=== PATIENT | female | born 1960 | race African-American/Black ===

== ENCOUNTER 2021-04-28 05:29 | Inpatient (IN) | payer OTHER ==
[2021-04-28] MEDS ORDERED: hydrALAZINE 25 MG TAB ONE (05:57)
[2021-04-28] MEDS ORDERED: Amlodipine 5 MG TAB ONE (05:57)
[2021-04-28] MEDS ORDERED: Carvedilol 6.25 MG TAB PO SCH (06:15)
[2021-04-28 06:20] LABS: #Lymphocytes 0.5 thou/uL (1.20-3.40); #Monocytes 0.3 thou/uL (0.11-0.59); #Neutrophils 7.1 thou/uL (1.40-6.50); %Basophils 0.4 % (0.0-1.0); %Eosinophils 0.2 % (0.0-10.0); %Lymphocytes 6.5 % (21.0-51.0); %Monocytes 3.2 % (0.0-10.0); %Neutrophils 89.8 % (42.0-75.0); Mean Corpuscular HGB CONC 32.3 g/dL (32.0-36.0); Mean Corpuscular Hemoglobin 30.6 pg (27.0-31.0); Mean Corpuscular Volume 94.9 fL (78.0-98.0); Mean Platelet Volume 7.9 fL (7.4-10.4); Platelet Count 197 thou/uL (130-400); RBC Distribution Width 15.4 % (11.5-14.5); Red Blood Cell (RBC) Count 2.29 mill/uL (4.20-5.40); White Blood Cell (WBC) Count 7.9 thou/uL (4.8-10.8)
[2021-04-28 06:39] LABS: ALT (SGPT) 349 U/L (8-55); AST (SGOT) 688 U/L (5-34); Albumin 3.9 g/dL (3.5-5.0); Alkaline Phosphatase 100 U/L (40-110); Anion Gap 29 mmol/L (10-20); BUN (Urea Nitrogen) 112 mg/dL (9.8-20.1); Bilirubin, Total 1.3 mg/dL (0.2-1.2); Calc. Creatinine Clearance 0 mL/min (70-130); Calcium 9.8 mg/dL (7.8-10.44); Carbon Dioxide 11 mmol/L (22-29); Chloride 105 mmol/L (98-107); Globulin 2.4 g/dL (2.4-3.5); Glucose 100 mg/dL (70-105); Potassium 5.7 mmol/L (3.5-5.1); Protein, Total 6.3 g/dL (6.0-8.3); Sodium 139 mmol/L (136-145)
[2021-04-28 07:20] LABS: Acetaminophen Less than 6.0 mcg/mL (10.0-30.0); Alcohol Less than 10 mg/dL (Less than 10); Salicylate Less than 8.0 mg/dL (15.0-30.0)
[2021-04-28 07:49] LABS: INR-International Normal Ratio 1.3; Prothrombin Time 15.8 sec (12.0-14.7)
[2021-04-28 07:50] LABS: PTT 32.4 sec (22.9-36.1)
[2021-04-28] MEDS ORDERED: hydrALAZINE 20 MG/ML VIAL ONE (08:18)
[2021-04-28] MEDS ORDERED: Nitroglycerin 0.4 MG TAB (25 Tab Bottle) SL PRN (09:57)
[2021-04-28] MEDS ORDERED: Nitroglycerin 2% Ointment 1 INCH/1 GM Packet TOP SCH ×3 (10:00→14:00)
[2021-04-28] MEDS ORDERED: Senokot S 8.6-50 MG TAB PO PRN (11:03)
[2021-04-28] MEDS ORDERED: Calcium Carbonate 500 MG ChewTAB PO PRN (11:03)
[2021-04-28] MEDS ORDERED: Acetaminophen 325 MG TAB PO PRN (11:03)
[2021-04-28] MEDS ORDERED: Ondansetron ODT 4 MG TAB PO PRN (11:03)
[2021-04-28] MEDS ORDERED: Ondansetron PF 4 MG/2 ML Vial IVP PRN (11:03)
[2021-04-28] MEDS ORDERED: Nitroglycerin 2% Ointment 1 INCH/1 GM Packet ONE (11:27)
[2021-04-28] MEDS ORDERED: Sodium Bicarb 50 MEQ/50 ML Abboject 8.4% SYRINGE ONE (11:27)
[2021-04-28] MEDS ORDERED: Dextrose 50% Abboject 50 ML SYRINGE ONE (11:27)
[2021-04-28] MEDS ORDERED: Labetalol HCl 100 MG/20 ML VIAL SLOW IVP PRN ×2 (11:27→11:28)
[2021-04-28] MEDS ORDERED: Insulin Regular 300 UNITS/3 ML VIAL ONE (11:27)
[2021-04-28] MEDS ORDERED: Dextrose 50% Abboject 50 ML SYRINGE SLOW IVP SCH (11:30)
[2021-04-28] MEDS ORDERED: Sodium Bicarb 50 MEQ/50 ML Abboject 8.4% SYRINGE IVP SCH (11:30)
[2021-04-28] MEDS ORDERED: Insulin Regular 300 UNITS/3 ML VIAL IVP SCH (11:30)
[2021-04-28 12:05] LABS: Potassium 5.9 mmol/L (3.5-5.1)
[2021-04-28 12:17] LABS: Troponin I 0.152 ng/mL (< 0.028)
[2021-04-28 13:31] LABS: HBSAg Index 0.22 S/CO (0-0.99); Hep B Surf Ag Non-Reactive S/CO (NonReactive)
[2021-04-28 14:51] LABS: Troponin I 0.185 ng/mL (< 0.028)
[2021-04-28] MEDS ORDERED: Tuberculin PPD 0.1 ML VIAL I-DERMAL SCH (15:00)
[2021-04-28 15:37] LABS: Hemoglobin 7.4 g/dL (12.0-16.0); Mean Corpuscular HGB CONC 33.8 g/dL (32.0-36.0); Mean Corpuscular Hemoglobin 31.3 pg (27.0-31.0); Mean Corpuscular Volume 92.5 fL (78.0-98.0); Platelet Count 193 thou/uL (130-400); RBC Distribution Width 15.5 % (11.5-14.5); Red Blood Cell (RBC) Count 2.38 mill/uL (4.20-5.40); White Blood Cell (WBC) Count 6.6 thou/uL (4.8-10.8)
[2021-04-28 15:52] LABS: Anisocytosis SLIGHT = 6-15 cells (100X) (0-5/hpf); Band 2 % (5-11); Eosinophils 1 % (0-10); Lymphocytes 6 % (21-51); MDiff Complete? YES; Monocytes 6 % (0-10); Neutrophil 84 % (42-75); Nucleated RBC 1 % (0); Ovalocytes SLIGHT = 2-5 cells (100X) (0-1/hpf); Platelet Morphology Comment Appears Adequate; Polychromasia SLIGHT = 2-3 cells (100X) (0-2/hpf); Schistocytes SLIGHT = 2-5 cells (100X) (0-1/hpf)
[2021-04-28 15:55] LABS: Anion Gap 16 mmol/L (10-20); BUN (Urea Nitrogen) 33 mg/dL (9.8-20.1); Calc. Creatinine Clearance 0 mL/min (70-130); Calcium 9.7 mg/dL (7.8-10.44); Carbon Dioxide 34 mmol/L (22-29); Chloride 95 mmol/L (98-107); Glucose 62 mg/dL (70-105); Phosphorus 2.9 mg/dL (2.3-4.7); Sodium 142 mmol/L (136-145)
[2021-04-28 16:11] LABS: HBSAg Index 0.34 S/CO (0-0.99); Hep B Core Total Ab Non-Reactive (NonReactive); Hep B Core Total Index 0.09 S/CO (0-0.79); Hep B Surf Ag Non-Reactive S/CO (NonReactive); Hep C IgG Ab Non-Reactive (NonReactive); Hep C Index 0.06 S/CO (0-0.79)
[2021-04-28 16:13] LABS: HBSAB Concentration 25.85 mIU/mL; Hep B Surf AB Reactive (NonReactive)
[2021-04-28] MEDS: Sevelamer Carbonate 800 MG TAB PO SCH ×2 (18:38→19:59)
[2021-04-28] MEDS: hydrALAZINE 25 MG TAB PO SCH ×2 (18:42→21:48)
[2021-04-28] MEDS ORDERED: Famotidine 20 MG TAB PO SCH (21:00)
[2021-04-28] MEDS ORDERED: hydrALAZINE 25 MG TAB PO SCH (21:30)
[2021-04-28] MEDS ORDERED: diphenhydrAMINE 25 MG CAP PO SCH ×2 (22:00→23:30)
[2021-04-28] MEDS: Carvedilol 6.25 MG TAB PO SCH (22:11)
[2021-04-28 22:24] VITALS: BMI 20.3
[2021-04-29] MEDS: hydrALAZINE 20 MG/ML VIAL SLOW IVP PRN (01:16)
[2021-04-29] MEDS ORDERED: traZODone HCl 50 MG TAB PO SCH (02:00)
[2021-04-29 05:18] LABS: #Lymphocytes 0.8 thou/uL (1.20-3.40); #Monocytes 0.6 thou/uL (0.11-0.59); #Neutrophils 4.4 thou/uL (1.40-6.50); %Eosinophils 0.8 % (0.0-10.0); %Lymphocytes 13.7 % (21.0-51.0); %Monocytes 9.8 % (0.0-10.0); %Neutrophils 75.7 % (42.0-75.0); Hemoglobin 6.9 g/dL (12.0-16.0); Mean Corpuscular HGB CONC 31.8 g/dL (32.0-36.0); Mean Corpuscular Hemoglobin 30.5 pg (27.0-31.0); Mean Corpuscular Volume 95.9 fL (78.0-98.0); Mean Platelet Volume 7.7 fL (7.4-10.4); Platelet Count 185 thou/uL (130-400); RBC Distribution Width 15.1 % (11.5-14.5); Red Blood Cell (RBC) Count 2.26 mill/uL (4.20-5.40); White Blood Cell (WBC) Count 5.8 thou/uL (4.8-10.8)
[2021-04-29 05:36] LABS: ALT (SGPT) 294 U/L (8-55); AST (SGOT) 229 U/L (5-34); Albumin 3.6 g/dL (3.5-5.0); Alkaline Phosphatase 82 U/L (40-110); Anion Gap 17 mmol/L (10-20); BUN (Urea Nitrogen) 36 mg/dL (9.8-20.1); Bilirubin, Total 0.9 mg/dL (0.2-1.2); Calc. Creatinine Clearance 5 mL/min (70-130); Calcium 9.3 mg/dL (7.8-10.44); Carbon Dioxide 29 mmol/L (22-29); Chloride 95 mmol/L (98-107); Globulin 2.3 g/dL (2.4-3.5); Glucose 79 mg/dL (70-105); Potassium 3.6 mmol/L (3.5-5.1); Protein, Total 5.9 g/dL (6.0-8.3); Sodium 137 mmol/L (136-145)
[2021-04-29] MEDS ORDERED: Carvedilol 6.25 MG TAB PO SCH (09:15)
[2021-04-29] MEDS: Aspirin Chewable 81 MG TAB PO SCH (09:37)
[2021-04-29] MEDS: Sevelamer Carbonate 800 MG TAB PO SCH ×3 (09:37→18:15)
[2021-04-29] MEDS: hydrALAZINE 25 MG TAB PO SCH ×3 (09:38→19:55)
[2021-04-29] MEDS: Amlodipine 10 MG TAB PO SCH (09:38)
[2021-04-29] MEDS: Carvedilol 6.25 MG TAB PO SCH ×2 (09:41→18:15)
[2021-04-29] MEDS ORDERED: Minoxidil 2.5 MG TAB PO SCH (12:15)
[2021-04-29 12:18] LABS: SARS-CoV-2 PCR by NAA Not Detected (NotDetected)
[2021-04-29] MEDS: Gabapentin 300 MG CAP PO SCH ×2 (15:57→19:55)
[2021-04-29] MEDS: Mirtazapine 15 MG TAB PO SCH (19:55)
[2021-04-29] MEDS: Calcitriol 0.25 MCG CAP PO SCH (19:56)
[2021-04-29] MEDS: Melatonin 3 MG TAB PO SCH (19:56)
[2021-04-29] MEDS ORDERED: Famotidine 20 MG TAB PO SCH (21:00)
[2021-04-30 04:58] LABS: #Eosinphils 0.1 thou/uL (0.0-0.7); #Lymphocytes 0.9 thou/uL (1.20-3.40); #Monocytes 0.7 thou/uL (0.11-0.59); #Neutrophils 3.8 thou/uL (1.40-6.50); %Basophils 0.2 % (0.0-1.0); %Eosinophils 1.4 % (0.0-10.0); %Lymphocytes 15.8 % (21.0-51.0); %Monocytes 12.3 % (0.0-10.0); %Neutrophils 70.3 % (42.0-75.0); Hemoglobin 6.9 g/dL (12.0-16.0); Mean Corpuscular HGB CONC 33.1 g/dL (32.0-36.0); Mean Corpuscular Hemoglobin 31.5 pg (27.0-31.0); Mean Corpuscular Volume 95.3 fL (78.0-98.0); Mean Platelet Volume 7.4 fL (7.4-10.4); Platelet Count 208 thou/uL (130-400); RBC Distribution Width 15.3 % (11.5-14.5); Red Blood Cell (RBC) Count 2.18 mill/uL (4.20-5.40); White Blood Cell (WBC) Count 5.4 thou/uL (4.8-10.8)
[2021-04-30] MEDS: hydrALAZINE 20 MG/ML VIAL SLOW IVP PRN (05:03)
[2021-04-30 05:25] LABS: Anion Gap 17 mmol/L (10-20); BUN (Urea Nitrogen) 44 mg/dL (9.8-20.1); Calc. Creatinine Clearance 4 mL/min (70-130); Calcium 8.9 mg/dL (7.8-10.44); Carbon Dioxide 26 mmol/L (22-29); Chloride 94 mmol/L (98-107); Glucose 93 mg/dL (70-105); Potassium 4.1 mmol/L (3.5-5.1); Sodium 133 mmol/L (136-145)
[2021-04-30 05:28] LABS: ALT (SGPT) 209 U/L (8-55); AST (SGOT) 78 U/L (5-34); Albumin 3.2 g/dL (3.5-5.0); Alkaline Phosphatase 66 U/L (40-110); Bilirubin, Direct 0.2 mg/dL (0.1-0.3); Bilirubin, Total 0.6 mg/dL (0.2-1.2); Protein, Total 5.5 g/dL (6.0-8.3)
[2021-04-30] MEDS ORDERED: Atorvastatin Calcium 40 MG TAB PO SCH (09:00)
[2021-04-30] MEDS ORDERED: READ PPD TEST SITE PO SCH (09:00)
[2021-04-30] MEDS ORDERED: Minoxidil 2.5 MG TAB PO SCH (09:00)
[2021-04-30] MEDS: Cinacalcet HCl 30 MG TAB PO SCH (09:48)
[2021-04-30] MEDS: Sevelamer Carbonate 800 MG TAB PO SCH ×3 (09:48→18:32)
[2021-04-30] MEDS: Calcitriol 0.25 MCG CAP PO SCH ×2 (09:49→20:32)
[2021-04-30] MEDS: Gabapentin 300 MG CAP PO SCH ×3 (09:49→20:33)
[2021-04-30] MEDS: Carvedilol 6.25 MG TAB PO SCH ×2 (09:50→23:00)
[2021-04-30] MEDS: hydrALAZINE 25 MG TAB PO SCH ×2 (09:50→15:59)
[2021-04-30] MEDS: Aspirin Chewable 81 MG TAB PO SCH (09:51)
[2021-04-30] MEDS: Amlodipine 10 MG TAB PO SCH (09:51)
[2021-04-30] MEDS ORDERED: EPOETIN ALFA-EPBX (ESRD) 4,000 UNIT/ML VIAL SC SCH (10:00)
[2021-04-30] MEDS: Mirtazapine 15 MG TAB PO SCH (20:32)
[2021-04-30] MEDS: Melatonin 3 MG TAB PO SCH (20:33)
[2021-05-01 04:45] LABS: #Eosinphils 0.1 thou/uL (0.0-0.7); #Lymphocytes 1.2 thou/uL (1.20-3.40); #Monocytes 0.7 thou/uL (0.11-0.59); %Basophils 0.5 % (0.0-1.0); %Eosinophils 1.9 % (0.0-10.0); %Lymphocytes 19.6 % (21.0-51.0); Hemoglobin 7.6 g/dL (12.0-16.0); Mean Corpuscular HGB CONC 32.4 g/dL (32.0-36.0); Mean Corpuscular Hemoglobin 31.1 pg (27.0-31.0); Mean Platelet Volume 6.8 fL (7.4-10.4); Platelet Count 240 thou/uL (130-400); RBC Distribution Width 15.3 % (11.5-14.5); Red Blood Cell (RBC) Count 2.45 mill/uL (4.20-5.40); White Blood Cell (WBC) Count 6.1 thou/uL (4.8-10.8)
[2021-05-01 05:33] LABS: ALT (SGPT) 158 U/L (8-55); AST (SGOT) 37 U/L (5-34); Albumin 3.3 g/dL (3.5-5.0); Alkaline Phosphatase 64 U/L (40-110); Anion Gap 16 mmol/L (10-20); BUN (Urea Nitrogen) 50 mg/dL (9.8-20.1); Bilirubin, Total 0.5 mg/dL (0.2-1.2); Calc. Creatinine Clearance 4 mL/min (70-130); Calcium 8.5 mg/dL (7.8-10.44); Carbon Dioxide 27 mmol/L (22-29); Chloride 90 mmol/L (98-107); Globulin 2.3 g/dL (2.4-3.5); Glucose 95 mg/dL (70-105); Protein, Total 5.6 g/dL (6.0-8.3); Sodium 129 mmol/L (136-145)
[2021-05-01] MEDS ORDERED: Amlodipine 10 MG TAB PO SCH (09:00)
[2021-05-01] MEDS: Gabapentin 300 MG CAP PO SCH ×3 (13:31→20:43)
[2021-05-01] MEDS: Sevelamer Carbonate 800 MG TAB PO SCH ×3 (13:32→16:26)
[2021-05-01] MEDS: Cinacalcet HCl 30 MG TAB PO SCH (14:11)
[2021-05-01] MEDS: Carvedilol 6.25 MG TAB PO SCH ×2 (14:11→20:44)
[2021-05-01] MEDS: Aspirin Chewable 81 MG TAB PO SCH (14:12)
[2021-05-01] MEDS: Calcitriol 0.25 MCG CAP PO SCH ×2 (14:12→20:45)
[2021-05-01] MEDS: Mirtazapine 15 MG TAB PO SCH (20:44)
[2021-05-01] MEDS: Melatonin 3 MG TAB PO SCH (20:45)
[2021-05-02 04:58] LABS: Cardiac Risk 4.6 (Less than 4.5)
[2021-05-02] MEDS ORDERED: Gabapentin 300 MG CAP PO SCH ×2 (09:00→21:00)
[2021-05-02] MEDS ORDERED: Amlodipine 5 MG TAB PO SCH (09:00)
[2021-05-02] MEDS: Carvedilol 6.25 MG TAB PO SCH ×2 (09:22→21:06)
[2021-05-02] MEDS: Calcitriol 0.25 MCG CAP PO SCH ×2 (09:22→21:06)
[2021-05-02] MEDS: Sevelamer Carbonate 800 MG TAB PO SCH ×3 (09:22→17:17)
[2021-05-02] MEDS: Aspirin Chewable 81 MG TAB PO SCH (09:22)
[2021-05-02] MEDS: Cinacalcet HCl 30 MG TAB PO SCH (09:23)
[2021-05-02] MEDS: Gabapentin 300 MG CAP PO SCH (09:29)
[2021-05-02] MEDS: Melatonin 3 MG TAB PO SCH (21:05)
[2021-05-02] MEDS: Mirtazapine 15 MG TAB PO SCH (21:06)
[2021-05-03 05:41] LABS: #Eosinphils 0.2 thou/uL (0.0-0.7); #Lymphocytes 0.9 thou/uL (1.20-3.40); #Monocytes 0.5 thou/uL (0.11-0.59); #Neutrophils 3.1 thou/uL (1.40-6.50); %Basophils 0.6 % (0.0-1.0); %Eosinophils 3.7 % (0.0-10.0); %Lymphocytes 18.7 % (21.0-51.0); %Monocytes 9.6 % (0.0-10.0); %Neutrophils 67.4 % (42.0-75.0); Hemoglobin 6.6 g/dL (12.0-16.0); Mean Corpuscular HGB CONC 32.9 g/dL (32.0-36.0); Mean Corpuscular Volume 97.3 fL (78.0-98.0); Mean Platelet Volume 7.2 fL (7.4-10.4); Platelet Count 206 thou/uL (130-400); RBC Distribution Width 15.5 % (11.5-14.5); Red Blood Cell (RBC) Count 2.05 mill/uL (4.20-5.40); White Blood Cell (WBC) Count 4.7 thou/uL (4.8-10.8)
[2021-05-03 05:59] LABS: Anion Gap 14 mmol/L (10-20); BUN (Urea Nitrogen) 28 mg/dL (9.8-20.1); Calc. Creatinine Clearance 5 mL/min (70-130); Carbon Dioxide 29 mmol/L (22-29); Chloride 96 mmol/L (98-107); Glucose 112 mg/dL (70-105); Potassium 4.6 mmol/L (3.5-5.1); Sodium 134 mmol/L (136-145)
[2021-05-03] MEDS ORDERED: Amlodipine 10 MG TAB PO SCH (09:00)
[2021-05-03] MEDS: Sevelamer Carbonate 800 MG TAB PO SCH ×2 (10:36→13:22)
[2021-05-03 13:22] VITALS: TEMP 97.4
[2021-05-03] MEDS: Cinacalcet HCl 30 MG TAB PO SCH (13:22)
[2021-05-03] MEDS: Aspirin Chewable 81 MG TAB PO SCH (13:23)
[2021-05-03] MEDS: Carvedilol 6.25 MG TAB PO SCH (13:23)
[2021-05-03] MEDS: Calcitriol 0.25 MCG CAP PO SCH (13:23)
[2021-05-03 15:38] VITALS: BP 167/69
== END 2021-05-03 16:35 | disposition home or self-care (01) | DRG 640 ==
LOC: ERS 05:29 → INTOOBSV 07:41 → ERHOLD 07:41 → OBSVTOIN 21:07 → 2SW 21:35 → 2NO 04-30 22:11 → SURG A 05-02 18:14
PROVIDERS: ADMIT Internal Medicine; ATTEND Internal Medicine
PROC: 5A1D70Z Performance of Urinary Filtration, Intermittent, Less than 6 Hours Per Day (ICD-10-PCS; principal; 2021-04-28)
PROC: 30233N1 Transfusion of Nonautologous Red Blood Cells into Peripheral Vein, Percutaneous Approach (ICD-10-PCS; 2021-05-03)
DX: E87.70 Fluid overload, unspecified (principal); Z20.822 Contact with and (suspected) exposure to COVID-19; N18.6 End stage renal disease; I12.0 Hypertensive chronic kidney disease with stage 5 chronic kidney disease or end stage renal disease; N25.81 Secondary hyperparathyroidism of renal origin; I47.2 Ventricular tachycardia; E87.1 Hypo-osmolality and hyponatremia; I16.0 Hypertensive urgency; E87.2 Acidosis; D63.1 Anemia in chronic kidney disease; E11.22 Type 2 diabetes mellitus with diabetic chronic kidney disease; E87.5 Hyperkalemia; R94.5 Abnormal results of liver function studies; E11.40 Type 2 diabetes mellitus with diabetic neuropathy, unspecified; K76.89 Other specified diseases of liver; I08.3 Combined rheumatic disorders of mitral, aortic and tricuspid valves; R77.8 Other specified abnormalities of plasma proteins; Z91.14 Patient's other noncompliance with medication regimen; Z99.2 Dependence on renal dialysis; Z82.49 Family history of ischemic heart disease and other diseases of the circulatory system; Z79.899 Other long term (current) drug therapy
CPT/HCPCS: 36415; 36430; 71045; 76705; 80048; 80053; 80061; 80076; 80307; 82553; 82728; 83880; 83970; 84100; 84484; 85025; 85610; 85730; 86580; 86704; 86706; 86803; 86850; 86900; 86901; 87340; 90935; 93005; 93306; 96374; G0257; G0378; J0360; J1815; P9016; Q0163; Q5105; U0003; U0005

== ENCOUNTER 2021-05-10 08:07 | Emergency (ER) | payer OTHER ==
[2021-05-10 08:42] LABS: #Eosinphils 0.2 thou/uL (0.0-0.7); #Lymphocytes 0.9 thou/uL (1.20-3.40); #Monocytes 0.5 thou/uL (0.11-0.59); #Neutrophils 5.2 thou/uL (1.40-6.50); %Basophils 0.4 % (0.0-1.0); %Eosinophils 2.7 % (0.0-10.0); %Lymphocytes 12.8 % (21.0-51.0); %Monocytes 7.4 % (0.0-10.0); %Neutrophils 76.8 % (42.0-75.0); Hemoglobin 8.5 g/dL (12.0-16.0); Mean Corpuscular HGB CONC 33.2 g/dL (32.0-36.0); Mean Corpuscular Hemoglobin 31.9 pg (27.0-31.0); Mean Corpuscular Volume 96.1 fL (78.0-98.0); Mean Platelet Volume 7.3 fL (7.4-10.4); Platelet Count 193 thou/uL (130-400); RBC Distribution Width 14.8 % (11.5-14.5); Red Blood Cell (RBC) Count 2.65 mill/uL (4.20-5.40); White Blood Cell (WBC) Count 6.7 thou/uL (4.8-10.8)
[2021-05-10 09:14] LABS: ALT (SGPT) 25 U/L (8-55); AST (SGOT) 14 U/L (5-34); Albumin 3.9 g/dL (3.5-5.0); Alkaline Phosphatase 70 U/L (40-110); Anion Gap 22 mmol/L (10-20); BUN (Urea Nitrogen) 72 mg/dL (9.8-20.1); Bilirubin, Total 0.7 mg/dL (0.2-1.2); Calc. Creatinine Clearance 0 mL/min (70-130); Calcium 9.1 mg/dL (7.8-10.44); Carbon Dioxide 20 mmol/L (22-29); Chloride 101 mmol/L (98-107); Globulin 2.4 g/dL (2.4-3.5); Glucose 91 mg/dL (70-105); Potassium 5.7 mmol/L (3.5-5.1); Protein, Total 6.3 g/dL (6.0-8.3); Sodium 137 mmol/L (136-145)
[2021-05-10] MEDS ORDERED: Nitroglycerin 2% Ointment 1 INCH/1 GM Packet ONE (09:14)
[2021-05-10 10:26] LABS: SARS-CoV-2 NAA Rapid Test Not Detected (NotDetected)
[2021-05-10 10:32] LABS: Hep B Core Total Ab Non-Reactive (NonReactive); Hep B Core Total Index 0.04 S/CO (0-0.79); Hep B Surf Ag Non-Reactive S/CO (NonReactive)
[2021-05-10 10:33] LABS: Hep C IgG Ab Non-Reactive (NonReactive); Hep C Index 0.05 S/CO (0-0.79)
[2021-05-10 10:34] LABS: HBSAB Concentration 42.33 mIU/mL; Hep B Surf AB Reactive (NonReactive)
== END 2021-05-10 15:52 | disposition home or self-care (01) ==
LOC: ERS 08:07
DX: I12.0 Hypertensive chronic kidney disease with stage 5 chronic kidney disease or end stage renal disease (principal); E11.22 Type 2 diabetes mellitus with diabetic chronic kidney disease; N18.6 End stage renal disease; E87.70 Fluid overload, unspecified; E87.5 Hyperkalemia; Z99.2 Dependence on renal dialysis; Z20.822 Contact with and (suspected) exposure to COVID-19; Z79.899 Other long term (current) drug therapy
CPT/HCPCS: 0240U; 36415; 36416; 80053; 85025; 86704; 86706; 86803; 87340; 90935; 93005; 94760; G0257

== ENCOUNTER 2021-07-23 13:27 | Emergency (ER) | payer OTHER ==
[2021-07-23 14:07] LABS: #Eosinphils 0.2 thou/uL (0.0-0.7); #Monocytes 0.5 thou/uL (0.11-0.59); #Neutrophils 4.6 thou/uL (1.40-6.50); %Basophils 0.5 % (0.0-1.0); %Eosinophils 2.8 % (0.0-10.0); %Lymphocytes 15.4 % (21.0-51.0); %Monocytes 7.3 % (0.0-10.0); %Neutrophils 74.1 % (42.0-75.0); Hemoglobin 10.5 g/dL (12.0-16.0); Mean Corpuscular HGB CONC 32.2 g/dL (32.0-36.0); Mean Corpuscular Hemoglobin 28.5 pg (27.0-31.0); Mean Corpuscular Volume 88.2 fL (78.0-98.0); Mean Platelet Volume 9.9 fL (7.4-10.4); Platelet Count 186 thou/uL (130-400); RBC Distribution Width 16.7 % (11.5-14.5); Red Blood Cell (RBC) Count 3.68 mill/uL (4.20-5.40); White Blood Cell (WBC) Count 6.3 thou/uL (4.8-10.8)
[2021-07-23 14:35] LABS: AST (SGOT) 20 U/L (5-34); Albumin 3.5 g/dL (3.5-5.0); Alkaline Phosphatase 52 U/L (40-110); Anion Gap 28 mmol/L (10-20); BUN (Urea Nitrogen) 81 mg/dL (9.8-20.1); Bilirubin, Total 0.6 mg/dL (0.2-1.2); Calc. Creatinine Clearance 0 mL/min (70-130); Calcium 10.2 mg/dL (7.8-10.44); Carbon Dioxide 11 mmol/L (22-29); Chloride 100 mmol/L (98-107); Globulin 2.8 g/dL (2.4-3.5); Potassium 5.8 mmol/L (3.5-5.1); Protein, Total 6.3 g/dL (6.0-8.3); Sodium 133 mmol/L (136-145)
[2021-07-23 14:40] LABS: Glucose 52 mg/dL (70-105)
[2021-07-23 14:59] LABS: ALT (SGPT) Less than 7 U/L (8-55)
[2021-07-23] MEDS ORDERED: Acetaminophen 325 MG TAB ONE (15:54)
== END 2021-07-23 16:48 | disposition home or self-care (01) ==
LOC: ERS 13:27
DX: E87.5 Hyperkalemia (principal); E87.70 Fluid overload, unspecified; I49.8 Other specified cardiac arrhythmias; I12.0 Hypertensive chronic kidney disease with stage 5 chronic kidney disease or end stage renal disease; E11.22 Type 2 diabetes mellitus with diabetic chronic kidney disease; N18.6 End stage renal disease; D50.9 Iron deficiency anemia, unspecified; Z79.899 Other long term (current) drug therapy; Z99.2 Dependence on renal dialysis
CPT/HCPCS: 71045; 80053; 85025; 93005

== ENCOUNTER 2021-08-21 14:22 | Observation (INO) | payer OTHER ==
[2021-08-21] MEDS ORDERED: Acetaminophen 500 MG TAB ONE (15:27)
[2021-08-21] MEDS ORDERED: Ondansetron ODT 4 MG TAB ONE (15:27)
[2021-08-21 15:57] LABS: Hemoglobin 14.6 g/dL (12.0-16.0); Mean Corpuscular HGB CONC 30.6 g/dL (32.0-36.0); Mean Corpuscular Hemoglobin 27.3 pg (27.0-31.0); Mean Corpuscular Volume 89.2 fL (78.0-98.0); RBC Distribution Width 17.3 % (11.5-14.5); Red Blood Cell (RBC) Count 5.35 mill/uL (4.20-5.40)
[2021-08-21 16:08] LABS: ALT (SGPT) Less than 7 U/L (8-55); AST (SGOT) 14 U/L (5-34); Albumin 4.1 g/dL (3.5-5.0); Alkaline Phosphatase 60 U/L (40-110); Anion Gap 29 mmol/L (10-20); BUN (Urea Nitrogen) 45 mg/dL (9.8-20.1); Bilirubin, Total 0.8 mg/dL (0.2-1.2); Calc. Creatinine Clearance 0 mL/min (70-130); Calcium 10.3 mg/dL (7.8-10.44); Carbon Dioxide 16 mmol/L (22-29); Chloride 94 mmol/L (98-107); Glucose 69 mg/dL (70-105); Lipase 65 U/L (8-78); Protein, Total 7.1 g/dL (6.0-8.3); Sodium 134 mmol/L (136-145)
[2021-08-21 16:14] LABS: Lymphocytes 24 % (21-51); MDiff Complete? YES; Monocytes 6 % (0-10); Neutrophil 68 % (42-75); Platelet Clumps SLIGHT; Platelet Morphology Comment PLT clumps seen-ADEQ; RBC Morphology Normal; White Blood Cell (WBC) Count 4.4 thou/uL (4.8-10.8)
[2021-08-21 16:52] LABS: CKMB 1.5 ng/mL (0-6.6)
[2021-08-21] MEDS ORDERED: Ondansetron PF 4 MG/2 ML Vial IVP PRN ×2 (18:15)
[2021-08-21] MEDS ORDERED: Bisacodyl 5 MG TAB PO PRN (18:15)
[2021-08-21] MEDS ORDERED: Acetaminophen 325 MG TAB PO PRN ×2 (18:15)
[2021-08-21] MEDS ORDERED: Ondansetron ODT 4 MG TAB SL PRN (18:15)
[2021-08-21 19:08] VITALS: BMI 22.3
[2021-08-21] MEDS: cloNIDine 0.1 MG TAB PO SCH (23:13)
[2021-08-21] MEDS: Heparin 5,000 UNITS/ML VIAL SC SCH (23:13)
[2021-08-22] MEDS ORDERED: diphenhydrAMINE 50 MG/ML VIAL IVP SCH (00:15)
[2021-08-22] MEDS ORDERED: diphenhydrAMINE 25 MG CAP PO SCH (00:30)
[2021-08-22 06:58] LABS: #Eosinphils 0.1 thou/uL (0.0-0.7); #Lymphocytes 0.6 thou/uL (1.20-3.40); #Monocytes 0.4 thou/uL (0.11-0.59); #Neutrophils 2.8 thou/uL (1.40-6.50); %Basophils 0.9 % (0.0-1.0); %Eosinophils 1.6 % (0.0-10.0); %Lymphocytes 16.1 % (21.0-51.0); %Monocytes 10.5 % (0.0-10.0); %Neutrophils 70.9 % (42.0-75.0); Mean Corpuscular HGB CONC 30.9 g/dL (32.0-36.0); Mean Corpuscular Hemoglobin 28.1 pg (27.0-31.0); Mean Corpuscular Volume 90.9 fL (78.0-98.0); Mean Platelet Volume 8.4 fL (7.4-10.4); Platelet Count 185 thou/uL (130-400); RBC Distribution Width 16.9 % (11.5-14.5); Red Blood Cell (RBC) Count 3.92 mill/uL (4.20-5.40)
[2021-08-22 07:17] LABS: Anion Gap 15 mmol/L (10-20); BUN (Urea Nitrogen) 20 mg/dL (9.8-20.1); Calc. Creatinine Clearance 4 mL/min (70-130); Calcium 9.8 mg/dL (7.8-10.44); Carbon Dioxide 28 mmol/L (22-29); Chloride 96 mmol/L (98-107); Glucose 89 mg/dL (70-105); Potassium 4.2 mmol/L (3.5-5.1); Sodium 135 mmol/L (136-145)
[2021-08-22] MEDS: Heparin 5,000 UNITS/ML VIAL SC SCH ×2 (08:54→14:58)
[2021-08-22] MEDS: cloNIDine 0.1 MG TAB PO SCH (10:39)
[2021-08-22] MEDS ORDERED: cloNIDine 0.1 MG TAB PO PRN (10:48)
[2021-08-22 14:00] LABS: SARS-CoV-2 PCR by NAA Not Detected (NotDetected)
[2021-08-22 17:25] VITALS: BP 173/66; TEMP 98
[2021-08-24] MEDS ORDERED: FLU VACC QS2021-22(6MOS UP)/PF 60 MCG/0.5 ML SYRINGE IM ONE (19:30)
== END 2021-08-22 17:19 | disposition home or self-care (01) ==
LOC: ERS 14:22 → T4-A 17:06
PROVIDERS: ADMIT Internal Medicine; ATTEND Internal Medicine
DX: I16.0 Hypertensive urgency (principal); R11.2 Nausea with vomiting, unspecified; I12.0 Hypertensive chronic kidney disease with stage 5 chronic kidney disease or end stage renal disease; E11.22 Type 2 diabetes mellitus with diabetic chronic kidney disease; E11.21 Type 2 diabetes mellitus with diabetic nephropathy; E11.40 Type 2 diabetes mellitus with diabetic neuropathy, unspecified; N18.6 End stage renal disease; D63.1 Anemia in chronic kidney disease; N25.81 Secondary hyperparathyroidism of renal origin; Z20.822 Contact with and (suspected) exposure to COVID-19; E87.6 Hypokalemia; Z79.82 Long term (current) use of aspirin; Z79.899 Other long term (current) drug therapy; Z91.15 Patient's noncompliance with renal dialysis; Z99.2 Dependence on renal dialysis
CPT/HCPCS: 36415; 36416; 71045; 80048; 80053; 82553; 83690; 83970; 84484; 85025; 93005; G0378; J1644; Q0162; U0003; U0005

== ENCOUNTER 2021-08-30 12:34 | Emergency (ER) | payer OTHER ==
[2021-08-30 13:33] LABS: #Basophils 0.1 thou/uL (0.0-0.2); #Eosinphils 0.1 thou/uL (0.0-0.7); #Lymphocytes 1.1 thou/uL (1.20-3.40); #Monocytes 0.5 thou/uL (0.11-0.59); %Basophils 1.2 % (0.0-1.0); %Eosinophils 2.2 % (0.0-10.0); %Lymphocytes 22.3 % (21.0-51.0); %Monocytes 10.4 % (0.0-10.0); %Neutrophils 63.9 % (42.0-75.0); Hemoglobin 10.7 g/dL (12.0-16.0); Mean Corpuscular HGB CONC 31.9 g/dL (32.0-36.0); Mean Corpuscular Hemoglobin 28.3 pg (27.0-31.0); Mean Corpuscular Volume 88.7 fL (78.0-98.0); Platelet Count 265 thou/uL (130-400); RBC Distribution Width 15.9 % (11.5-14.5); Red Blood Cell (RBC) Count 3.77 mill/uL (4.20-5.40); White Blood Cell (WBC) Count 4.7 thou/uL (4.8-10.8)
[2021-08-30 13:48] LABS: ALT (SGPT) Less than 7 U/L (8-55); AST (SGOT) 13 U/L (5-34); Albumin 3.8 g/dL (3.5-5.0); Alkaline Phosphatase 44 U/L (40-110); Anion Gap 23 mmol/L (10-20); BUN (Urea Nitrogen) 33 mg/dL (9.8-20.1); Bilirubin, Total 0.7 mg/dL (0.2-1.2); Calc. Creatinine Clearance 0 mL/min (70-130); Carbon Dioxide 19 mmol/L (22-29); Chloride 90 mmol/L (98-107); Glucose 75 mg/dL (70-105); Lipase 75 U/L (8-78); Potassium 4.4 mmol/L (3.5-5.1); Protein, Total 6.8 g/dL (6.0-8.3); Sodium 128 mmol/L (136-145)
[2021-08-30] MEDS ORDERED: Ondansetron PF 4 MG/2 ML Vial ONE (17:12)
== END 2021-08-30 18:30 | disposition home or self-care (01) ==
LOC: ERS 12:34
DX: R11.2 Nausea with vomiting, unspecified (principal); I12.0 Hypertensive chronic kidney disease with stage 5 chronic kidney disease or end stage renal disease; E11.22 Type 2 diabetes mellitus with diabetic chronic kidney disease; N18.6 End stage renal disease; E78.5 Hyperlipidemia, unspecified
CPT/HCPCS: 36415; 80053; 83605; 83690; 85025; 93005; J2405

== ENCOUNTER 2021-08-30 21:04 | Observation (INO) | payer OTHER ==
[2021-08-30] MEDS ORDERED: Ondansetron PF 4 MG/2 ML Vial ONE (23:38)
[2021-08-30] MEDS ORDERED: Promethazine HCl 25 MG/ML VIAL ONE (23:38)
[2021-08-30] MEDS ORDERED: hydrALAZINE 20 MG/ML VIAL ONE (23:48)
[2021-08-30] MEDS ORDERED: Nitroglycerin 2% Ointment 1 INCH/1 GM Packet ONE (23:54)
[2021-08-30 23:58] LABS: #Basophils 0.1 thou/uL (0.0-0.2); #Eosinphils 0.1 thou/uL (0.0-0.7); #Lymphocytes 0.9 thou/uL (1.20-3.40); #Monocytes 0.6 thou/uL (0.11-0.59); #Neutrophils 3.8 thou/uL (1.40-6.50); %Eosinophils 0.9 % (0.0-10.0); %Lymphocytes 17.3 % (21.0-51.0); %Monocytes 10.6 % (0.0-10.0); %Neutrophils 70.1 % (42.0-75.0); Hemoglobin 11.1 g/dL (12.0-16.0); Mean Corpuscular HGB CONC 31.6 g/dL (32.0-36.0); Mean Corpuscular Hemoglobin 28.1 pg (27.0-31.0); Mean Platelet Volume 8.1 fL (7.4-10.4); Platelet Count 289 thou/uL (130-400); RBC Distribution Width 16.3 % (11.5-14.5); Red Blood Cell (RBC) Count 3.96 mill/uL (4.20-5.40); White Blood Cell (WBC) Count 5.4 thou/uL (4.8-10.8)
[2021-08-31] MEDS ORDERED: Ondansetron PF 4 MG/2 ML Vial ONE (00:14)
[2021-08-31 00:16] LABS: ALT (SGPT) 7 U/L (8-55); AST (SGOT) 14 U/L (5-34); Alkaline Phosphatase 50 U/L (40-110); Anion Gap 23 mmol/L (10-20); BUN (Urea Nitrogen) 39 mg/dL (9.8-20.1); Bilirubin, Total 0.7 mg/dL (0.2-1.2); CK (CPK) 111 U/L (29-168); Calc. Creatinine Clearance 0 mL/min (70-130); Calcium 11.4 mg/dL (7.8-10.44); Carbon Dioxide 19 mmol/L (22-29); Chloride 90 mmol/L (98-107); Globulin 3.5 g/dL (2.4-3.5); Glucose 65 mg/dL (70-105); Potassium 4.3 mmol/L (3.5-5.1); Protein, Total 7.5 g/dL (6.0-8.3); Sodium 128 mmol/L (136-145)
[2021-08-31 00:36] LABS: CKMB 1.6 ng/mL (0-6.6)
[2021-08-31] MEDS ORDERED: hydrALAZINE 20 MG/ML VIAL ONE (01:36)
[2021-08-31] MEDS ORDERED: diphenhydrAMINE 25 MG CAP ONE (02:03)
[2021-08-31] MEDS ORDERED: Acetaminophen 500 MG TAB ONE (02:03)
[2021-08-31] MEDS ORDERED: Labetalol HCl 100 MG/20 ML VIAL ONE (02:21)
[2021-08-31] MEDS ORDERED: cloNIDine 0.1 MG TAB ONE (02:59)
[2021-08-31 03:58] VITALS: BMI 13.6
[2021-08-31] MEDS: cloNIDine 0.1mg/24 Hour PATCH TD SCH (04:00)
[2021-08-31] MEDS ORDERED: Ondansetron PF 4 MG/2 ML Vial IVP PRN (04:10)
[2021-08-31] MEDS ORDERED: Pantoprazole 40 MG VIAL IVP SCH (04:15)
[2021-08-31] MEDS ORDERED: Sodium Chloride 0.9% 1,000 ML IV SCH (04:15)
[2021-08-31] MEDS ORDERED: hydrALAZINE 20 MG/ML VIAL SLOW IVP SCH (05:15)
[2021-08-31 06:21] LABS: #Monocytes 0.4 thou/uL (0.11-0.59); #Neutrophils 4.4 thou/uL (1.40-6.50); %Basophils 0.1 % (0.0-1.0); %Eosinophils 0.7 % (0.0-10.0); %Lymphocytes 16.3 % (21.0-51.0); %Monocytes 7.2 % (0.0-10.0); %Neutrophils 75.7 % (42.0-75.0); Hemoglobin 9.1 g/dL (12.0-16.0); Mean Corpuscular HGB CONC 31.7 g/dL (32.0-36.0); Mean Corpuscular Hemoglobin 28.4 pg (27.0-31.0); Mean Corpuscular Volume 89.5 fL (78.0-98.0); Platelet Count 231 thou/uL (130-400); RBC Distribution Width 16.2 % (11.5-14.5); Red Blood Cell (RBC) Count 3.21 mill/uL (4.20-5.40); White Blood Cell (WBC) Count 5.8 thou/uL (4.8-10.8)
[2021-08-31] MEDS ORDERED: Dextrose 50% Abboject 50 ML SYRINGE ONE (06:28)
[2021-08-31 06:43] LABS: Anion Gap 20 mmol/L (10-20); BUN (Urea Nitrogen) 41 mg/dL (9.8-20.1); Calc. Creatinine Clearance 4 mL/min (70-130); Calcium 10.2 mg/dL (7.8-10.44); Carbon Dioxide 22 mmol/L (22-29); Chloride 90 mmol/L (98-107); Potassium 4.6 mmol/L (3.5-5.1); Sodium 127 mmol/L (136-145)
[2021-08-31 06:47] LABS: Glucose 48 mg/dL (70-105)
[2021-08-31] MEDS ORDERED: Labetalol HCl 100 MG/20 ML VIAL SLOW IVP PRN ×2 (06:56→08:10)
[2021-08-31] MEDS ORDERED: Amlodipine 10 MG TAB PO SCH ×2 (07:00→07:45)
[2021-08-31] MEDS ORDERED: Dextrose 50% Abboject 50 ML SYRINGE SLOW IVP PRN (08:02)
[2021-08-31] MEDS ORDERED: Dextrose 5% in Water 1,000 ML IV PRN (08:02)
[2021-08-31] MEDS ORDERED: diphenhydrAMINE 50 MG/ML VIAL IVP SCH (10:15)
[2021-08-31] MEDS: Losartan 25 MG TAB PO SCH ×2 (11:00→20:32)
[2021-08-31] MEDS: hydrALAZINE 25 MG TAB PO SCH ×3 (11:00→20:25)
[2021-08-31] MEDS: Cinacalcet HCl 30 MG TAB PO SCH (11:00)
[2021-08-31] MEDS: Carvedilol 6.25 MG TAB PO SCH (11:00)
[2021-08-31] MEDS: Amlodipine 10 MG TAB PO SCH (11:00)
[2021-08-31] MEDS: Heparin 5,000 UNITS/ML VIAL SC SCH ×3 (11:00→20:26)
[2021-08-31] MEDS: Montelukast Sodium 10 mg Tablet PO SCH (11:00)
[2021-08-31 11:13] LABS: SARS-CoV-2 PCR by NAA Not Detected (NotDetected)
[2021-08-31] MEDS ORDERED: Lorazepam 1 MG TAB PO PRN (12:45)
[2021-08-31] MEDS: Calcitriol 0.25 MCG CAP PO SCH ×2 (13:51→20:25)
[2021-08-31] MEDS: cloNIDine 0.1 MG TAB PO PRN (13:51)
[2021-08-31] MEDS: Ondansetron ODT 4 MG TAB PO PRN (14:16)
[2021-08-31] MEDS ORDERED: diphenhydrAMINE 25 MG CAP PO PRN (17:50)
[2021-08-31] MEDS ORDERED: Mirtazapine 15 MG TAB PO SCH (21:00)
[2021-09-01] MEDS: cloNIDine 0.1 MG TAB PO PRN (02:34)
[2021-09-01] MEDS: cloNIDine 0.1mg/24 Hour PATCH TD SCH (02:43)
[2021-09-01] MEDS ORDERED: diphenhydrAMINE 25 MG CAP PO SCH (02:45)
[2021-09-01] MEDS ORDERED: Acetaminophen 325 MG TAB PO PRN (04:37)
[2021-09-01 04:57] LABS: #Eosinphils 0.1 thou/uL (0.0-0.7); #Lymphocytes 0.9 thou/uL (1.20-3.40); #Monocytes 0.3 thou/uL (0.11-0.59); #Neutrophils 3.9 thou/uL (1.40-6.50); %Basophils 0.4 % (0.0-1.0); %Eosinophils 1.8 % (0.0-10.0); %Lymphocytes 17.2 % (21.0-51.0); %Monocytes 6.4 % (0.0-10.0); %Neutrophils 74.2 % (42.0-75.0); Hemoglobin 8.2 g/dL (12.0-16.0); Mean Corpuscular HGB CONC 31.2 g/dL (32.0-36.0); Mean Corpuscular Hemoglobin 28.2 pg (27.0-31.0); Mean Corpuscular Volume 90.6 fL (78.0-98.0); Mean Platelet Volume 7.4 fL (7.4-10.4); Platelet Count 228 thou/uL (130-400); RBC Distribution Width 16.1 % (11.5-14.5); Red Blood Cell (RBC) Count 2.91 mill/uL (4.20-5.40); White Blood Cell (WBC) Count 5.3 thou/uL (4.8-10.8)
[2021-09-01 05:21] LABS: Anion Gap 13 mmol/L (10-20); BUN (Urea Nitrogen) 9 mg/dL (9.8-20.1); Calc. Creatinine Clearance 8 mL/min (70-130); Calcium 9.3 mg/dL (7.8-10.44); Carbon Dioxide 29 mmol/L (22-29); Chloride 96 mmol/L (98-107); Glucose 65 mg/dL (70-105); Potassium 3.8 mmol/L (3.5-5.1); Sodium 134 mmol/L (136-145)
[2021-09-01] MEDS: Ondansetron ODT 4 MG TAB PO PRN (08:35)
[2021-09-01] MEDS ORDERED: Pantoprazole 40 MG VIAL IVP SCH (09:00)
[2021-09-01] MEDS: Losartan 25 MG TAB PO SCH (14:49)
[2021-09-01] MEDS: Amlodipine 10 MG TAB PO SCH (14:49)
[2021-09-01] MEDS: Calcitriol 0.25 MCG CAP PO SCH (14:50)
[2021-09-01] MEDS: Carvedilol 6.25 MG TAB PO SCH (14:50)
[2021-09-01] MEDS: hydrALAZINE 25 MG TAB PO SCH ×2 (14:50→14:51)
[2021-09-01] MEDS: Cinacalcet HCl 30 MG TAB PO SCH (14:50)
[2021-09-01] MEDS: Montelukast Sodium 10 mg Tablet PO SCH (14:51)
[2021-09-01] MEDS: Heparin 5,000 UNITS/ML VIAL SC SCH ×2 (14:52)
[2021-09-01 15:44] VITALS: BP 176/82; TEMP 98.3
== END 2021-09-01 18:05 | disposition home or self-care (01) ==
LOC: ERS 21:04 → INTOOBSV 08-31 00:48 → NEURO 08-31 00:48
PROVIDERS: ADMIT Student in an Organized Health Care Education/Training Program; ATTEND Internal Medicine
DX: R11.2 Nausea with vomiting, unspecified (principal); I16.0 Hypertensive urgency; I12.0 Hypertensive chronic kidney disease with stage 5 chronic kidney disease or end stage renal disease; E11.22 Type 2 diabetes mellitus with diabetic chronic kidney disease; N18.6 End stage renal disease; D63.1 Anemia in chronic kidney disease; E87.1 Hypo-osmolality and hyponatremia; E78.5 Hyperlipidemia, unspecified; R19.7 Diarrhea, unspecified; E83.52 Hypercalcemia; E11.10 Type 2 diabetes mellitus with ketoacidosis without coma; L29.8 Other pruritus; Z79.899 Other long term (current) drug therapy; Z99.2 Dependence on renal dialysis; Z20.822 Contact with and (suspected) exposure to COVID-19
CPT/HCPCS: 36415; 36416; 80048; 80053; 82550; 82553; 83605; 83690; 83880; 84484; 85025; 90935; 93005; 96372; 96374; 96375; 96376; G0257; G0378; J0360; J1200; J1644; J2405; J2550; Q0162; U0003; U0005

== ENCOUNTER 2021-09-15 19:11 | Inpatient (IN) | payer OTHER ==
[2021-09-15 20:04] LABS: #Lymphocytes 0.6 thou/uL (1.20-3.40); #Monocytes 0.5 thou/uL (0.11-0.59); #Neutrophils 3.9 thou/uL (1.40-6.50); %Basophils 0.3 % (0.0-1.0); %Eosinophils 0.9 % (0.0-10.0); %Lymphocytes 11.9 % (21.0-51.0); %Monocytes 10.4 % (0.0-10.0); %Neutrophils 76.6 % (42.0-75.0); Hemoglobin 8.5 g/dL (12.0-16.0); Mean Corpuscular HGB CONC 33.1 g/dL (32.0-36.0); Mean Corpuscular Hemoglobin 30.8 pg (27.0-31.0); Mean Corpuscular Volume 92.9 fL (78.0-98.0); Mean Platelet Volume 7.8 fL (7.4-10.4); Platelet Count 190 thou/uL (130-400); RBC Distribution Width 18.5 % (11.5-14.5); Red Blood Cell (RBC) Count 2.75 mill/uL (4.20-5.40)
[2021-09-15 20:24] LABS: ALT (SGPT) Less than 7 U/L (8-55); AST (SGOT) 11 U/L (5-34); Albumin 3.4 g/dL (3.5-5.0); Alkaline Phosphatase 48 U/L (40-110); Anion Gap 20 mmol/L (10-20); BUN (Urea Nitrogen) 41 mg/dL (9.8-20.1); Bilirubin, Total 0.6 mg/dL (0.2-1.2); Calc. Creatinine Clearance 0 mL/min (70-130); Calcium 10.4 mg/dL (7.8-10.44); Carbon Dioxide 24 mmol/L (22-29); Chloride 90 mmol/L (98-107); Globulin 2.6 g/dL (2.4-3.5); Glucose 65 mg/dL (70-105); Lipase 45 U/L (8-78); Potassium 4.3 mmol/L (3.5-5.1); Sodium 130 mmol/L (136-145)
[2021-09-15] MEDS ORDERED: Ondansetron PF 4 MG/2 ML Vial ONE (20:24)
[2021-09-15] MEDS ORDERED: hydrALAZINE 20 MG/ML VIAL ONE (20:40)
[2021-09-15] MEDS ORDERED: Labetalol HCl 100 MG/20 ML VIAL ONE (21:52)
[2021-09-15] MEDS ORDERED: Ondansetron PF 4 MG/2 ML Vial IVP PRN (21:53)
[2021-09-15] MEDS ORDERED: Dextrose 5% in Water 1,000 ML IV PRN (21:54)
[2021-09-15] MEDS ORDERED: Dextrose 50% Abboject 50 ML SYRINGE SLOW IVP PRN (21:54)
[2021-09-15] MEDS ORDERED: hydrALAZINE 20 MG/ML VIAL SLOW IVP PRN (21:56)
[2021-09-15] MEDS ORDERED: Lidocaine 2% Viscous Solution 10 ML, Aluminum & Magnesium Hydroxide 30 ML SSW SCH (23:30)
[2021-09-15] MEDS ORDERED: Morphine 4 MG/ML VIAL SLOW IVP SCH (23:30)
[2021-09-15] MEDS ORDERED: Pantoprazole 40 MG VIAL IVP SCH (23:30)
[2021-09-15] MEDS ORDERED: Promethazine HCl 12.5 MG in Sodium Chloride 0.9% 50 ML IVPB SCH (23:30)
[2021-09-16] MEDS ORDERED: cloNIDine 0.1 MG TAB PO SCH (01:45)
[2021-09-16 05:38] LABS: #Lymphocytes 0.6 thou/uL (1.20-3.40); #Monocytes 0.6 thou/uL (0.11-0.59); #Neutrophils 2.7 thou/uL (1.40-6.50); %Basophils 0.2 % (0.0-1.0); %Eosinophils 0.4 % (0.0-10.0); %Lymphocytes 16.2 % (21.0-51.0); %Monocytes 14.5 % (0.0-10.0); %Neutrophils 68.6 % (42.0-75.0); Hemoglobin 8.1 g/dL (12.0-16.0); Mean Corpuscular HGB CONC 32.7 g/dL (32.0-36.0); Mean Corpuscular Hemoglobin 30.6 pg (27.0-31.0); Mean Corpuscular Volume 93.4 fL (78.0-98.0); Mean Platelet Volume 7.5 fL (7.4-10.4); Platelet Count 166 thou/uL (130-400); RBC Distribution Width 18.1 % (11.5-14.5); Red Blood Cell (RBC) Count 2.64 mill/uL (4.20-5.40); White Blood Cell (WBC) Count 3.9 thou/uL (4.8-10.8)
[2021-09-16 05:59] LABS: Anion Gap 17 mmol/L (10-20); BUN (Urea Nitrogen) 42 mg/dL (9.8-20.1); Calc. Creatinine Clearance 3 mL/min (70-130); Calcium 9.7 mg/dL (7.8-10.44); Carbon Dioxide 24 mmol/L (22-29); Chloride 91 mmol/L (98-107); Glucose 70 mg/dL (70-105); Potassium 4.2 mmol/L (3.5-5.1); Sodium 128 mmol/L (136-145)
[2021-09-16] MEDS: Acetaminophen 325 MG TAB PO PRN ×2 (06:14→19:58)
[2021-09-16] MEDS: Heparin 5,000 UNITS/ML VIAL SC SCH ×3 (09:52→19:51)
[2021-09-16] MEDS: hydrALAZINE 25 MG TAB PO SCH ×3 (09:52→19:51)
[2021-09-16] MEDS: Amlodipine 10 MG TAB PO SCH (09:52)
[2021-09-16] MEDS: Carvedilol 6.25 MG TAB PO SCH ×2 (09:52→17:35)
[2021-09-16] MEDS ORDERED: Albuterol Sulfate 2.5 mg/3 ml Neb NEB PRN (14:44)
[2021-09-16 17:18] LABS: SARS-CoV-2 PCR by NAA DETECTED (NotDetected)
[2021-09-16] MEDS: hydrALAZINE 20 MG/ML VIAL SLOW IVP PRN (17:36)
[2021-09-16] MEDS ORDERED: Guaifenesin DM 100-10/5 ML UDCUP PO PRN (17:41)
[2021-09-16] MEDS: Atorvastatin Calcium 40 MG TAB PO SCH (19:50)
[2021-09-16] MEDS: cloNIDine 0.1 MG TAB PO SCH (19:50)
[2021-09-16] MEDS: Mirtazapine 15 MG TAB PO SCH (19:50)
[2021-09-16] MEDS: Calcitriol 0.25 MCG CAP PO SCH (19:51)
[2021-09-17] MEDS: hydrALAZINE 20 MG/ML VIAL SLOW IVP PRN (04:06)
[2021-09-17 05:13] LABS: Anion Gap 16 mmol/L (10-20); BUN (Urea Nitrogen) 18 mg/dL (9.8-20.1); Calc. Creatinine Clearance 6 mL/min (70-130); Calcium 9.2 mg/dL (7.8-10.44); Carbon Dioxide 26 mmol/L (22-29); Chloride 96 mmol/L (98-107); Glucose 60 mg/dL (70-105); Potassium 3.7 mmol/L (3.5-5.1); Sodium 134 mmol/L (136-145)
[2021-09-17 05:28] LABS: Anisocytosis SLIGHT = 6-15 cells (100X) (0-5/hpf); Band 6 % (5-11); Burr Cells SLIGHT = 2-5 cells (100X) (0-1/hpf); Elliptocytes SLIGHT = 2-5 cells (100X) (0-1/hpf); Eosinophils 2 % (0-10); Hemoglobin 8.8 g/dL (12.0-16.0); Lymphocytes 14 % (21-51); MDiff Complete? YES; Mean Corpuscular HGB CONC 30.5 g/dL (32.0-36.0); Mean Corpuscular Hemoglobin 28.9 pg (27.0-31.0); Mean Corpuscular Volume 94.8 fL (78.0-98.0); Mean Platelet Volume 8.3 fL (7.4-10.4); Monocytes 11 % (0-10); Neutrophil 66 % (42-75); Platelet Count 164 thou/uL (130-400); Platelet Morphology Comment Appears Adequate; Polychromasia SLIGHT = 2-3 cells (100X) (0-2/hpf); RBC Distribution Width 17.8 % (11.5-14.5); Red Blood Cell (RBC) Count 3.05 mill/uL (4.20-5.40); Schistocytes MODERATE= 6-15 cells (100X) (0-1/hpf); Target Cells SLIGHT = 2-5 cells (100X) (0-1/hpf); White Blood Cell (WBC) Count 3.1 thou/uL (4.8-10.8)
[2021-09-17] MEDS: Losartan 25 MG TAB PO SCH (09:12)
[2021-09-17] MEDS: Calcitriol 0.25 MCG CAP PO SCH ×2 (09:12→21:00)
[2021-09-17] MEDS: hydrALAZINE 25 MG TAB PO SCH ×3 (09:13→20:58)
[2021-09-17] MEDS: Carvedilol 6.25 MG TAB PO SCH ×2 (09:13→16:40)
[2021-09-17] MEDS: Amlodipine 10 MG TAB PO SCH (09:13)
[2021-09-17] MEDS: Montelukast Sodium 10 mg Tablet PO SCH (09:14)
[2021-09-17] MEDS: Heparin 5,000 UNITS/ML VIAL SC SCH ×3 (09:14→20:58)
[2021-09-17] MEDS: cloNIDine 0.1 MG TAB PO SCH ×2 (09:14→21:05)
[2021-09-17] MEDS: Minoxidil 2.5 MG TAB PO SCH (09:25)
[2021-09-17] MEDS ORDERED: Carvedilol 6.25 MG TAB PO SCH ×2 (10:08→10:30)
[2021-09-17] MEDS: Acetaminophen 325 MG TAB PO PRN (18:46)
[2021-09-17] MEDS: Mirtazapine 15 MG TAB PO SCH (20:55)
[2021-09-17] MEDS: Atorvastatin Calcium 40 MG TAB PO SCH (21:00)
[2021-09-18 05:56] LABS: Band 2 % (5-11); Eosinophils 1 % (0-10); Hemoglobin 9.1 g/dL (12.0-16.0); Hypochromia SLIGHT = 6-15 cells (100X) (0-5/hpf); Lymphocytes 26 % (21-51); MDiff Complete? YES; Mean Corpuscular HGB CONC 32.1 g/dL (32.0-36.0); Mean Corpuscular Hemoglobin 30.2 pg (27.0-31.0); Mean Platelet Volume 7.7 fL (7.4-10.4); Monocytes 8 % (0-10); Neutrophil 62 % (42-75); Platelet Count 190 thou/uL (130-400); Platelet Morphology Comment Appears Adequate; RBC Distribution Width 17.5 % (11.5-14.5); Reactive Lymphocytes 1 % (0-10); Red Blood Cell (RBC) Count 3.02 mill/uL (4.20-5.40); White Blood Cell (WBC) Count 2.8 thou/uL (4.8-10.8)
[2021-09-18 06:21] LABS: Anion Gap 16 mmol/L (10-20); BUN (Urea Nitrogen) 30 mg/dL (9.8-20.1); Calc. Creatinine Clearance 5 mL/min (70-130); Calcium 9.5 mg/dL (7.8-10.44); Carbon Dioxide 25 mmol/L (22-29); Chloride 93 mmol/L (98-107); Glucose 80 mg/dL (70-105); Potassium 4.2 mmol/L (3.5-5.1); Sodium 130 mmol/L (136-145)
[2021-09-18] MEDS: Montelukast Sodium 10 mg Tablet PO SCH (08:29)
[2021-09-18] MEDS: Calcitriol 0.25 MCG CAP PO SCH ×2 (08:30→21:31)
[2021-09-18] MEDS: Heparin 5,000 UNITS/ML VIAL SC SCH ×3 (08:33→21:31)
[2021-09-18] MEDS: Acetaminophen 325 MG TAB PO PRN ×2 (08:43→13:58)
[2021-09-18] MEDS: hydrALAZINE 25 MG TAB PO SCH ×3 (09:37→21:31)
[2021-09-18] MEDS: cloNIDine 0.1 MG TAB PO SCH ×2 (09:37→21:31)
[2021-09-18] MEDS: Carvedilol 6.25 MG TAB PO SCH ×2 (09:37→17:32)
[2021-09-18] MEDS: Losartan 25 MG TAB PO SCH (09:37)
[2021-09-18] MEDS: Amlodipine 10 MG TAB PO SCH (09:37)
[2021-09-18] MEDS: Minoxidil 2.5 MG TAB PO SCH (09:38)
[2021-09-18] MEDS ORDERED: EPOETIN ALFA-EPBX (ESRD) 4,000 UNIT/ML VIAL SC SCH (12:00)
[2021-09-18] MEDS: Atorvastatin Calcium 40 MG TAB PO SCH (21:31)
[2021-09-18] MEDS: Mirtazapine 15 MG TAB PO SCH (21:31)
[2021-09-18] MEDS ORDERED: Melatonin 3 MG TAB PO PRN (21:32)
[2021-09-19] MEDS: Minoxidil 2.5 MG TAB PO SCH (07:49)
[2021-09-19] MEDS: Losartan 25 MG TAB PO SCH (07:49)
[2021-09-19] MEDS: Montelukast Sodium 10 mg Tablet PO SCH (07:49)
[2021-09-19] MEDS: hydrALAZINE 25 MG TAB PO SCH ×3 (07:50→20:42)
[2021-09-19] MEDS: Carvedilol 6.25 MG TAB PO SCH ×2 (07:50→17:23)
[2021-09-19] MEDS: cloNIDine 0.1 MG TAB PO SCH ×2 (07:50→20:42)
[2021-09-19] MEDS: Amlodipine 10 MG TAB PO SCH (07:50)
[2021-09-19] MEDS: Calcitriol 0.25 MCG CAP PO SCH ×2 (07:50→20:42)
[2021-09-19] MEDS: Heparin 5,000 UNITS/ML VIAL SC SCH ×3 (07:50→20:43)
[2021-09-19 09:00] LABS: Anion Gap 15 mmol/L (10-20); BUN (Urea Nitrogen) 17 mg/dL (9.8-20.1); Calc. Creatinine Clearance 7 mL/min (70-130); Calcium 9.6 mg/dL (7.8-10.44); Carbon Dioxide 26 mmol/L (22-29); Chloride 96 mmol/L (98-107); Glucose 82 mg/dL (70-105); Potassium 4.8 mmol/L (3.5-5.1); Sodium 132 mmol/L (136-145)
[2021-09-19] MEDS ORDERED: Prevnar 13-Val Conj/PF 0.5 ML SYRINGE IM ONE (09:00)
[2021-09-19] MEDS: Acetaminophen 325 MG TAB PO PRN (11:47)
[2021-09-19] MEDS ORDERED: Artificial Tear Sol 15 ML BOT EA EYE PRN (13:03)
[2021-09-19 14:49] VITALS: BMI 19.1
[2021-09-19] MEDS: Atorvastatin Calcium 40 MG TAB PO SCH (20:42)
[2021-09-19] MEDS: Mirtazapine 15 MG TAB PO SCH (20:42)
[2021-09-20] MEDS: Acetaminophen 325 MG TAB PO PRN ×2 (06:33→12:00)
[2021-09-20] MEDS: Amlodipine 10 MG TAB PO SCH (09:14)
[2021-09-20] MEDS: Carvedilol 6.25 MG TAB PO SCH (09:14)
[2021-09-20] MEDS: cloNIDine 0.1 MG TAB PO SCH (09:15)
[2021-09-20] MEDS: Calcitriol 0.25 MCG CAP PO SCH (09:15)
[2021-09-20] MEDS: Heparin 5,000 UNITS/ML VIAL SC SCH (09:16)
[2021-09-20] MEDS: hydrALAZINE 25 MG TAB PO SCH (09:19)
[2021-09-20] MEDS: Losartan 25 MG TAB PO SCH (09:20)
[2021-09-20] MEDS: Minoxidil 2.5 MG TAB PO SCH (09:20)
[2021-09-20] MEDS: Montelukast Sodium 10 mg Tablet PO SCH (09:21)
[2021-09-20 13:57] VITALS: BP 92/44; TEMP 97
== END 2021-09-20 15:00 | disposition home or self-care (01) | DRG 640 ==
LOC: ERS 19:11 → INTOOBSV 21:46 → NEURO 21:46 → OBSVTOIN 09-16 14:44 → 2SW 09-16 18:51
PROVIDERS: ADMIT Internal Medicine; ATTEND Family Medicine
PROC: 5A1D70Z Performance of Urinary Filtration, Intermittent, Less than 6 Hours Per Day (ICD-10-PCS; principal; 2021-09-16)
PROC: 8E0ZXY6 Isolation (ICD-10-PCS; 2021-09-16)
DX: E87.70 Fluid overload, unspecified (principal); N18.6 End stage renal disease; U07.1 COVID-19; I12.0 Hypertensive chronic kidney disease with stage 5 chronic kidney disease or end stage renal disease; I16.0 Hypertensive urgency; E11.22 Type 2 diabetes mellitus with diabetic chronic kidney disease; D63.1 Anemia in chronic kidney disease; E11.649 Type 2 diabetes mellitus with hypoglycemia without coma; E87.1 Hypo-osmolality and hyponatremia; Z99.2 Dependence on renal dialysis; Z79.899 Other long term (current) drug therapy; Z91.14 Patient's other noncompliance with medication regimen; Z91.15 Patient's noncompliance with renal dialysis; Z84.1 Family history of disorders of kidney and ureter; Z87.891 Personal history of nicotine dependence
CPT/HCPCS: 36415; 36416; 70450; 71045; 80048; 80053; 83690; 83880; 85025; 90935; 93005; 96374; 96375; C9113; G0257; G0378; J0360; J1644; J2270; J2405; J2550; Q5105; U0003; U0005

== ENCOUNTER 2021-10-02 11:18 | Inpatient (IN) | payer OTHER ==
[2021-10-02 12:12] LABS: #Eosinphils 0.1 thou/uL (0.0-0.7); #Monocytes 0.4 thou/uL (0.11-0.59); #Neutrophils 4.7 thou/uL (1.40-6.50); %Basophils 0.7 % (0.0-1.0); %Eosinophils 1.5 % (0.0-10.0); %Lymphocytes 15.5 % (21.0-51.0); %Monocytes 6.6 % (0.0-10.0); %Neutrophils 75.7 % (42.0-75.0); Mean Corpuscular HGB CONC 32.7 g/dL (32.0-36.0); Mean Corpuscular Hemoglobin 30.6 pg (27.0-31.0); Mean Corpuscular Volume 93.8 fL (78.0-98.0); Mean Platelet Volume 6.7 fL (7.4-10.4); Platelet Count 232 thou/uL (130-400); RBC Distribution Width 15.9 % (11.5-14.5); Red Blood Cell (RBC) Count 3.26 mill/uL (4.20-5.40); White Blood Cell (WBC) Count 6.3 thou/uL (4.8-10.8)
[2021-10-02 12:35] LABS: ALT (SGPT) Less than 7 U/L (8-55); AST (SGOT) 12 U/L (5-34); Albumin 3.3 g/dL (3.5-5.0); Alkaline Phosphatase 41 U/L (40-110); Anion Gap 23 mmol/L (10-20); BUN (Urea Nitrogen) 59 mg/dL (9.8-20.1); Bilirubin, Total 0.6 mg/dL (0.2-1.2); Calc. Creatinine Clearance 0 mL/min (70-130); Calcium 10.6 mg/dL (7.8-10.44); Carbon Dioxide 23 mmol/L (22-29); Chloride 95 mmol/L (98-107); Globulin 2.5 g/dL (2.4-3.5); Protein, Total 5.8 g/dL (6.0-8.3); Sodium 134 mmol/L (136-145)
[2021-10-02 12:44] LABS: Glucose 48 mg/dL (70-105); Potassium 7.3 mmol/L (3.5-5.1)
[2021-10-02 12:56] LABS: CKMB 1.6 ng/mL (0-6.6)
[2021-10-02] MEDS ORDERED: Morphine 4 MG/ML VIAL ONE (13:55)
[2021-10-02] MEDS ORDERED: Dextrose 50% Abboject 50 ML SYRINGE ONE ×3 (13:56→23:51)
[2021-10-02] MEDS ORDERED: Calcium Chloride 1 GM/10 ML Abboject SYRINGE ONE (13:58)
[2021-10-02] MEDS ORDERED: Acetaminophen 325 MG TAB ONE (14:35)
[2021-10-02] MEDS ORDERED: Amlodipine 5 MG TAB ONE (14:46)
[2021-10-02] MEDS ORDERED: Nitroglycerin 2% Ointment 1 INCH/1 GM Packet ONE (15:31)
[2021-10-02] MEDS ORDERED: Insulin Regular 300 UNITS/3 ML VIAL ONE (15:32)
[2021-10-02] MEDS ORDERED: hydrALAZINE 25 MG TAB PO SCH ×2 (15:45→16:00)
[2021-10-02] MEDS ORDERED: hydrALAZINE 20 MG/ML VIAL ONE (16:02)
[2021-10-02] MEDS ORDERED: Lorazepam 2 MG/ML VIAL ONE (17:34)
[2021-10-02] MEDS ORDERED: Lorazepam 2 MG/ML VIAL SLOW IVP PRN (17:39)
[2021-10-02] MEDS ORDERED: Ondansetron PF 4 MG/2 ML Vial IVP PRN ×2 (17:39→18:07)
[2021-10-02] MEDS: Lorazepam 2 MG/ML VIAL SLOW IVP SCH ×2 (17:45→19:16)
[2021-10-02 18:40] LABS: HBSAg Index 0.44 S/CO (0-0.99); Hep B Surf Ag Non-Reactive S/CO (NonReactive)
[2021-10-02] MEDS ORDERED: Albuterol 200 PUFF (6.7GM INHALER) INH PRN (18:41)
[2021-10-02] MEDS: Carvedilol 6.25 MG TAB PO SCH (23:02)
[2021-10-02] MEDS: Calcitriol 0.25 MCG CAP PO SCH (23:02)
[2021-10-02] MEDS: Atorvastatin Calcium 10 MG TAB PO SCH (23:02)
[2021-10-02] MEDS: hydrALAZINE 25 MG TAB PO SCH (23:03)
[2021-10-02] MEDS: Mirtazapine 15 MG TAB PO SCH (23:03)
[2021-10-02] MEDS: cloNIDine 0.1 MG TAB PO SCH (23:03)
[2021-10-03] MEDS ORDERED: Dextrose 50% Abboject 50 ML SYRINGE SLOW IVP PRN (00:08)
[2021-10-03] MEDS ORDERED: Dextrose 5% in Water 1,000 ML IV PRN (00:08)
[2021-10-03] MEDS ORDERED: Dextrose 5% in Water 1,000 ML IV SCH (00:15)
[2021-10-03] MEDS ORDERED: Labetalol HCl 100 MG/20 ML VIAL SLOW IVP SCH (03:00)
[2021-10-03 03:52] LABS: #Lymphocytes 0.7 thou/uL (1.20-3.40); #Monocytes 0.6 thou/uL (0.11-0.59); #Neutrophils 5.3 thou/uL (1.40-6.50); %Basophils 0.3 % (0.0-1.0); %Eosinophils 0.4 % (0.0-10.0); %Lymphocytes 10.4 % (21.0-51.0); %Monocytes 8.4 % (0.0-10.0); %Neutrophils 80.5 % (42.0-75.0); Hemoglobin 10.3 g/dL (12.0-16.0); Mean Corpuscular HGB CONC 32.7 g/dL (32.0-36.0); Mean Corpuscular Volume 94.8 fL (78.0-98.0); Mean Platelet Volume 7.5 fL (7.4-10.4); Platelet Count 180 thou/uL (130-400); RBC Distribution Width 15.8 % (11.5-14.5); Red Blood Cell (RBC) Count 3.33 mill/uL (4.20-5.40); White Blood Cell (WBC) Count 6.6 thou/uL (4.8-10.8)
[2021-10-03 04:00] LABS: Anion Gap 17 mmol/L (10-20); BUN (Urea Nitrogen) 21 mg/dL (9.8-20.1); Calc. Creatinine Clearance 7 mL/min (70-130); Calcium 10.2 mg/dL (7.8-10.44); Carbon Dioxide 28 mmol/L (22-29); Chloride 95 mmol/L (98-107); Potassium 4.6 mmol/L (3.5-5.1); Sodium 135 mmol/L (136-145)
[2021-10-03 04:02] LABS: Glucose 47 mg/dL (70-105)
[2021-10-03] MEDS ORDERED: FLU VACC QS2021-22(6MOS UP)/PF 60 MCG/0.5 ML SYRINGE IM ONE (09:00)
[2021-10-03] MEDS: Minoxidil 2.5 MG TAB PO SCH (09:16)
[2021-10-03] MEDS: Carvedilol 6.25 MG TAB PO SCH ×2 (09:16→20:06)
[2021-10-03] MEDS: cloNIDine 0.1 MG TAB PO SCH ×2 (09:17→20:07)
[2021-10-03] MEDS: Amlodipine 10 MG TAB PO SCH (09:17)
[2021-10-03] MEDS: Montelukast Sodium 10 mg Tablet PO SCH (09:17)
[2021-10-03] MEDS: hydrALAZINE 25 MG TAB PO SCH ×3 (09:17→20:06)
[2021-10-03] MEDS: Calcitriol 0.25 MCG CAP PO SCH ×2 (09:17→20:05)
[2021-10-03 10:53] LABS: SARS-CoV-2 PCR by NAA Not Detected (NotDetected)
[2021-10-03] MEDS: Acetaminophen 325 MG TAB PO PRN (13:54)
[2021-10-03] MEDS: Mirtazapine 15 MG TAB PO SCH (20:05)
[2021-10-03] MEDS: Atorvastatin Calcium 10 MG TAB PO SCH (20:06)
[2021-10-04 05:46] LABS: #Eosinphils 0.1 thou/uL (0.0-0.7); #Lymphocytes 0.5 thou/uL (1.20-3.40); #Monocytes 0.3 thou/uL (0.11-0.59); #Neutrophils 4.2 thou/uL (1.40-6.50); %Basophils 0.1 % (0.0-1.0); %Eosinophils 2.1 % (0.0-10.0); %Lymphocytes 9.2 % (21.0-51.0); %Monocytes 5.7 % (0.0-10.0); Hemoglobin 9.2 g/dL (12.0-16.0); Mean Corpuscular HGB CONC 32.7 g/dL (32.0-36.0); Mean Corpuscular Hemoglobin 31.4 pg (27.0-31.0); Mean Platelet Volume 7.3 fL (7.4-10.4); Platelet Count 141 thou/uL (130-400); RBC Distribution Width 15.4 % (11.5-14.5); Red Blood Cell (RBC) Count 2.93 mill/uL (4.20-5.40); White Blood Cell (WBC) Count 5.1 thou/uL (4.8-10.8)
[2021-10-04 06:10] LABS: Anion Gap 13 mmol/L (10-20); BUN (Urea Nitrogen) 10 mg/dL (9.8-20.1); Calc. Creatinine Clearance 9 mL/min (70-130); Calcium 9.3 mg/dL (7.8-10.44); Carbon Dioxide 28 mmol/L (22-29); Chloride 97 mmol/L (98-107); Magnesium 1.8 mg/dL (1.6-2.6); Phosphorus 3.4 mg/dL (2.3-4.7); Potassium 4.3 mmol/L (3.5-5.1); Sodium 134 mmol/L (136-145)
[2021-10-04 06:12] LABS: Glucose 51 mg/dL (70-105)
[2021-10-04] MEDS ORDERED: Dextrose 5% in Water 1,000 ML IV SCH (07:00)
[2021-10-04] MEDS: hydrALAZINE 20 MG/ML VIAL SLOW IVP PRN (08:12)
[2021-10-04] MEDS ORDERED: Lidocaine 2% Viscous Solution 10 ML, Aluminum & Magnesium Hydroxide 30 ML SSW SCH (08:45)
[2021-10-04] MEDS: hydrALAZINE 25 MG TAB PO SCH ×3 (08:59→21:39)
[2021-10-04] MEDS: Montelukast Sodium 10 mg Tablet PO SCH (08:59)
[2021-10-04] MEDS: Minoxidil 2.5 MG TAB PO SCH (08:59)
[2021-10-04] MEDS: Calcitriol 0.25 MCG CAP PO SCH ×2 (08:59→21:38)
[2021-10-04] MEDS: Amlodipine 10 MG TAB PO SCH (08:59)
[2021-10-04] MEDS: Carvedilol 6.25 MG TAB PO SCH ×2 (09:00→21:38)
[2021-10-04] MEDS ORDERED: Epoetin (ESRD) 20,000 UNITS/ML SC SCH (09:00)
[2021-10-04] MEDS: cloNIDine 0.1 MG TAB PO SCH ×2 (09:00→21:39)
[2021-10-04] MEDS ORDERED: EPOETIN ALFA-EPBX (ESRD) 4,000 UNIT/ML VIAL SC SCH (09:00)
[2021-10-04] MEDS: Simethicone Chewable 80 MG TAB PO SCH ×4 (10:47→21:37)
[2021-10-04] MEDS ORDERED: Polyvinyl Alcohol 1.4%/Povidone 0.6% Opth Drops EA EYE SCH (11:00)
[2021-10-04] MEDS ORDERED: Senokot S 8.6-50 MG TAB PO PRN (15:10)
[2021-10-04] MEDS ORDERED: Senokot S 8.6-50 MG TAB PO SCH (21:00)
[2021-10-04] MEDS: Atorvastatin Calcium 10 MG TAB PO SCH (21:37)
[2021-10-04] MEDS: Mirtazapine 15 MG TAB PO SCH (21:40)
[2021-10-04] MEDS: Polyvinyl Alcohol 1.4%/Povidone 0.6% Opth Drops EA EYE SCH (21:40)
[2021-10-05] MEDS: hydrALAZINE 20 MG/ML VIAL SLOW IVP PRN (04:40)
[2021-10-05] MEDS: Acetaminophen 325 MG TAB PO PRN ×3 (04:40→13:23)
[2021-10-05 05:58] LABS: Anion Gap 13 mmol/L (10-20); BUN (Urea Nitrogen) 17 mg/dL (9.8-20.1); Calc. Creatinine Clearance 7 mL/min (70-130); Calcium 9.2 mg/dL (7.8-10.44); Carbon Dioxide 30 mmol/L (22-29); Chloride 98 mmol/L (98-107); Glucose 75 mg/dL (70-105); Magnesium 1.9 mg/dL (1.6-2.6); Phosphorus 4.3 mg/dL (2.3-4.7); Potassium 4.2 mmol/L (3.5-5.1); Sodium 137 mmol/L (136-145)
[2021-10-05 06:59] LABS: Hemoglobin 8.5 g/dL (12.0-16.0); Mean Corpuscular HGB CONC 30.9 g/dL (32.0-36.0); Mean Corpuscular Hemoglobin 29.7 pg (27.0-31.0); Mean Corpuscular Volume 96.1 fL (78.0-98.0); Mean Platelet Volume 7.5 fL (7.4-10.4); Platelet Count 154 thou/uL (130-400); RBC Distribution Width 15.4 % (11.5-14.5); Red Blood Cell (RBC) Count 2.85 mill/uL (4.20-5.40); White Blood Cell (WBC) Count 3.1 thou/uL (4.8-10.8)
[2021-10-05] MEDS: Amlodipine 10 MG TAB PO SCH (08:54)
[2021-10-05] MEDS: Minoxidil 2.5 MG TAB PO SCH (08:54)
[2021-10-05] MEDS: cloNIDine 0.1 MG TAB PO SCH ×2 (08:54→21:04)
[2021-10-05] MEDS: Simethicone Chewable 80 MG TAB PO SCH ×4 (08:54→21:05)
[2021-10-05] MEDS: hydrALAZINE 25 MG TAB PO SCH ×3 (08:54→21:03)
[2021-10-05] MEDS: Calcitriol 0.25 MCG CAP PO SCH ×2 (08:54→21:04)
[2021-10-05] MEDS: Montelukast Sodium 10 mg Tablet PO SCH (08:54)
[2021-10-05] MEDS: Carvedilol 6.25 MG TAB PO SCH ×2 (08:54→21:04)
[2021-10-05] MEDS: Polyvinyl Alcohol 1.4%/Povidone 0.6% Opth Drops EA EYE SCH ×2 (10:20→21:05)
[2021-10-05 12:19] LABS: Band 1 % (5-11); Eosinophils 8 % (0-10); Hypochromia SLIGHT = 6-15 cells (100X) (0-5/hpf); Lymphocytes 20 % (21-51); MDiff Complete? YES; Monocytes 9 % (0-10); Neutrophil 61 % (42-75); Platelet Morphology Comment Appears Adequate; Polychromasia SLIGHT = 2-3 cells (100X) (0-2/hpf); Schistocytes SLIGHT = 2-5 cells (100X) (0-1/hpf)
[2021-10-05] MEDS ORDERED: Iopamidol 370 76% 100 ML VIAL ONE (14:31)
[2021-10-05] MEDS: Sucroferric Oxyhydroxide (Velphoro) 500 MG Tab.Chew PO SCH (15:07)
[2021-10-05] MEDS ORDERED: Metoclopramide HCl 10 MG/2 ML VIAL IVP SCH (16:45)
[2021-10-05] MEDS ORDERED: SUMAtriptan Succinate 50 MG TAB PO SCH (16:45)
[2021-10-05] MEDS ORDERED: Acetaminophen 325 MG TAB PO SCH (17:30)
[2021-10-05] MEDS ORDERED: Polyvinyl Alcohol 1.4%/Povidone 0.6% Opth Drops EA EYE SCH (21:00)
[2021-10-05] MEDS ORDERED: Lorazepam 0.5 MG TAB PO SCH (21:00)
[2021-10-05] MEDS: Mirtazapine 15 MG TAB PO SCH (21:02)
[2021-10-05] MEDS: Acetaminophen 325 MG TAB PO SCH (21:04)
[2021-10-05] MEDS: Atorvastatin Calcium 10 MG TAB PO SCH (21:04)
[2021-10-06] MEDS: Acetaminophen 325 MG TAB PO SCH ×6 (02:31→20:08)
[2021-10-06 05:05] LABS: Hemoglobin 8.6 g/dL (12.0-16.0); Mean Corpuscular HGB CONC 31.7 g/dL (32.0-36.0); Mean Corpuscular Hemoglobin 29.9 pg (27.0-31.0); Mean Corpuscular Volume 94.5 fL (78.0-98.0); Mean Platelet Volume 7.4 fL (7.4-10.4); Platelet Count 180 thou/uL (130-400); RBC Distribution Width 15.4 % (11.5-14.5); Red Blood Cell (RBC) Count 2.86 mill/uL (4.20-5.40); White Blood Cell (WBC) Count 3.5 thou/uL (4.8-10.8)
[2021-10-06 05:07] LABS: INR-International Normal Ratio 0.9; PTT 34.5 sec (22.9-36.1); Prothrombin Time 11.9 sec (12.0-14.7)
[2021-10-06 05:18] LABS: Anion Gap 18 mmol/L (10-20); BUN (Urea Nitrogen) 24 mg/dL (9.8-20.1); Calc. Creatinine Clearance 6 mL/min (70-130); Calcium 9.9 mg/dL (7.8-10.44); Carbon Dioxide 25 mmol/L (22-29); Chloride 93 mmol/L (98-107); Glucose 69 mg/dL (70-105); Magnesium 1.9 mg/dL (1.6-2.6); Phosphorus 4.9 mg/dL (2.3-4.7); Potassium 4.5 mmol/L (3.5-5.1); Sodium 131 mmol/L (136-145)
[2021-10-06 05:34] LABS: Band 1 % (5-11); Eosinophils 4 % (0-10); Lymphocytes 23 % (21-51); MDiff Complete? YES; Monocytes 14 % (0-10); Neutrophil 56 % (42-75); Reactive Lymphocytes 2 % (0-10); Schistocytes SLIGHT = 2-5 cells (100X) (0-1/hpf)
[2021-10-06] MEDS: Amlodipine 10 MG TAB PO SCH (10:37)
[2021-10-06] MEDS: cloNIDine 0.1 MG TAB PO SCH ×2 (10:38→20:13)
[2021-10-06] MEDS: Carvedilol 6.25 MG TAB PO SCH ×2 (10:38→20:12)
[2021-10-06] MEDS: Calcitriol 0.25 MCG CAP PO SCH ×2 (10:38→20:13)
[2021-10-06] MEDS: hydrALAZINE 25 MG TAB PO SCH ×3 (10:38→20:09)
[2021-10-06] MEDS: Minoxidil 2.5 MG TAB PO SCH (10:39)
[2021-10-06] MEDS: Simethicone Chewable 80 MG TAB PO SCH ×4 (10:39→20:17)
[2021-10-06] MEDS: Montelukast Sodium 10 mg Tablet PO SCH (10:39)
[2021-10-06] MEDS: Polyvinyl Alcohol 1.4%/Povidone 0.6% Opth Drops EA EYE SCH ×2 (10:40→20:16)
[2021-10-06] MEDS ORDERED: Montelukast Sodium 10 mg Tablet PO SCH (12:30)
[2021-10-06] MEDS ORDERED: cloNIDine 0.1 MG TAB PO SCH (12:30)
[2021-10-06] MEDS ORDERED: Minoxidil 2.5 MG TAB PO SCH (12:30)
[2021-10-06] MEDS ORDERED: hydrALAZINE 25 MG TAB PO SCH (12:30)
[2021-10-06] MEDS ORDERED: Amlodipine 10 MG TAB PO SCH (12:30)
[2021-10-06] MEDS ORDERED: Carvedilol 6.25 MG TAB PO SCH (12:30)
[2021-10-06] MEDS: Sevelamer Carbonate 800 MG TAB PO SCH ×2 (12:36→17:33)
[2021-10-06] MEDS ORDERED: Ibuprofen 200 MG TAB PO PRN (12:41)
[2021-10-06] MEDS: SUMAtriptan Succinate 50 MG TAB PO PRN (20:06)
[2021-10-06] MEDS: Mirtazapine 15 MG TAB PO SCH (20:11)
[2021-10-06] MEDS: Atorvastatin Calcium 10 MG TAB PO SCH (20:13)
[2021-10-07] MEDS: Acetaminophen 325 MG TAB PO SCH ×4 (00:58→12:12)
[2021-10-07] MEDS: SUMAtriptan Succinate 50 MG TAB PO PRN ×2 (01:05→19:53)
[2021-10-07 05:17] LABS: Anion Gap 15 mmol/L (10-20); BUN (Urea Nitrogen) 13 mg/dL (9.8-20.1); Calc. Creatinine Clearance 10 mL/min (70-130); Calcium 9.4 mg/dL (7.8-10.44); Carbon Dioxide 26 mmol/L (22-29); Chloride 93 mmol/L (98-107); Glucose 63 mg/dL (70-105); Magnesium 1.7 mg/dL (1.6-2.6); Phosphorus 3.2 mg/dL (2.3-4.7); Potassium 3.9 mmol/L (3.5-5.1); Sodium 130 mmol/L (136-145)
[2021-10-07] MEDS: hydrALAZINE 20 MG/ML VIAL SLOW IVP PRN (05:28)
[2021-10-07 08:27] LABS: Band 5 % (5-11); Eosinophils 4 % (0-10); Hemoglobin 8.3 g/dL (12.0-16.0); Hypochromia SLIGHT = 6-15 cells (100X) (0-5/hpf); Lymphocytes 18 % (21-51); MDiff Complete? YES; Mean Corpuscular HGB CONC 30.9 g/dL (32.0-36.0); Mean Corpuscular Hemoglobin 28.9 pg (27.0-31.0); Mean Corpuscular Volume 93.7 fL (78.0-98.0); Monocytes 13 % (0-10); Neutrophil 53 % (42-75); Platelet Count 180 thou/uL (130-400); Platelet Morphology Comment Appears Adequate; Polychromasia SLIGHT = 2-3 cells (100X) (0-2/hpf); RBC Distribution Width 15.4 % (11.5-14.5); Reactive Lymphocytes 7 % (0-10); Red Blood Cell (RBC) Count 2.88 mill/uL (4.20-5.40); Schistocytes SLIGHT = 2-5 cells (100X) (0-1/hpf); Tear Drops SLIGHT = 2-5 cells (100X) (0-1/hpf); White Blood Cell (WBC) Count 3.4 thou/uL (4.8-10.8)
[2021-10-07] MEDS ORDERED: Metoclopramide HCl 10 MG/2 ML VIAL IVP PRN (09:13)
[2021-10-07] MEDS: Calcitriol 0.25 MCG CAP PO SCH ×2 (09:17→19:52)
[2021-10-07] MEDS: hydrALAZINE 25 MG TAB PO SCH ×3 (09:17→19:49)
[2021-10-07] MEDS: Montelukast Sodium 10 mg Tablet PO SCH (09:17)
[2021-10-07] MEDS: Sevelamer Carbonate 800 MG TAB PO SCH ×3 (09:17→16:27)
[2021-10-07] MEDS: Minoxidil 2.5 MG TAB PO SCH (09:18)
[2021-10-07] MEDS: Carvedilol 6.25 MG TAB PO SCH ×2 (09:18→19:51)
[2021-10-07] MEDS: Amlodipine 10 MG TAB PO SCH (09:19)
[2021-10-07] MEDS: cloNIDine 0.1 MG TAB PO SCH ×2 (09:19→19:51)
[2021-10-07] MEDS: Artificial Tear Sol 15 ML BOT EA EYE SCH ×2 (09:19→19:53)
[2021-10-07] MEDS: Guaifenesin DM 100-10/5 ML UDCUP PO PRN (10:36)
[2021-10-07] MEDS: Simethicone Chewable 80 MG TAB PO SCH ×3 (12:13→19:52)
[2021-10-07] MEDS: Benzonatate 100 MG CAP PO SCH ×2 (16:26→19:51)
[2021-10-07] MEDS: Mirtazapine 15 MG TAB PO SCH (19:49)
[2021-10-07] MEDS: Atorvastatin Calcium 10 MG TAB PO SCH (19:51)
[2021-10-08] MEDS: Guaifenesin DM 100-10/5 ML UDCUP PO PRN ×5 (01:32→23:58)
[2021-10-08 05:31] LABS: #Basophils 0.1 thou/uL (0.0-0.2); #Eosinphils 0.2 thou/uL (0.0-0.7); #Monocytes 0.6 thou/uL (0.11-0.59); #Neutrophils 2.5 thou/uL (1.40-6.50); %Basophils 1.3 % (0.0-1.0); %Eosinophils 4.2 % (0.0-10.0); %Lymphocytes 21.7 % (21.0-51.0); %Monocytes 14.7 % (0.0-10.0); %Neutrophils 58.1 % (42.0-75.0); Hemoglobin 8.7 g/dL (12.0-16.0); Mean Corpuscular HGB CONC 32.1 g/dL (32.0-36.0); Mean Corpuscular Hemoglobin 29.7 pg (27.0-31.0); Mean Corpuscular Volume 92.5 fL (78.0-98.0); Mean Platelet Volume 7.1 fL (7.4-10.4); Platelet Count 253 thou/uL (130-400); RBC Distribution Width 15.5 % (11.5-14.5); Red Blood Cell (RBC) Count 2.92 mill/uL (4.20-5.40); White Blood Cell (WBC) Count 4.4 thou/uL (4.8-10.8)
[2021-10-08 05:56] LABS: Anion Gap 16 mmol/L (10-20); BUN (Urea Nitrogen) 25 mg/dL (9.8-20.1); Calc. Creatinine Clearance 7 mL/min (70-130); Carbon Dioxide 26 mmol/L (22-29); Chloride 89 mmol/L (98-107); Glucose 68 mg/dL (70-105); Magnesium 1.9 mg/dL (1.6-2.6); Phosphorus 3.8 mg/dL (2.3-4.7); Potassium 4.7 mmol/L (3.5-5.1); Sodium 126 mmol/L (136-145)
[2021-10-08] MEDS: SUMAtriptan Succinate 50 MG TAB PO PRN ×4 (06:04→20:43)
[2021-10-08] MEDS: Minoxidil 2.5 MG TAB PO SCH (08:11)
[2021-10-08] MEDS: Benzonatate 100 MG CAP PO SCH ×3 (08:11→20:42)
[2021-10-08] MEDS: Sevelamer Carbonate 800 MG TAB PO SCH ×3 (08:11→16:21)
[2021-10-08] MEDS: hydrALAZINE 25 MG TAB PO SCH ×3 (08:11→20:45)
[2021-10-08] MEDS: Montelukast Sodium 10 mg Tablet PO SCH (08:12)
[2021-10-08] MEDS: cloNIDine 0.1 MG TAB PO SCH ×2 (08:12→20:43)
[2021-10-08] MEDS: Calcitriol 0.25 MCG CAP PO SCH ×2 (08:12→20:43)
[2021-10-08] MEDS: Simethicone Chewable 80 MG TAB PO SCH ×4 (08:12→20:41)
[2021-10-08] MEDS: Amlodipine 10 MG TAB PO SCH (08:12)
[2021-10-08] MEDS: Carvedilol 6.25 MG TAB PO SCH ×2 (08:12→20:42)
[2021-10-08] MEDS: Artificial Tear Sol 15 ML BOT EA EYE SCH ×2 (08:23→20:41)
[2021-10-08 10:51] VITALS: BMI 13.5
[2021-10-08] MEDS: Atorvastatin Calcium 10 MG TAB PO SCH (20:42)
[2021-10-08] MEDS: Mirtazapine 15 MG TAB PO SCH (20:42)
[2021-10-09] MEDS: SUMAtriptan Succinate 50 MG TAB PO PRN ×2 (04:37→09:01)
[2021-10-09] MEDS: Guaifenesin DM 100-10/5 ML UDCUP PO PRN (04:43)
[2021-10-09 05:13] LABS: #Basophils 0.1 thou/uL (0.0-0.2); #Eosinphils 0.2 thou/uL (0.0-0.7); #Monocytes 0.6 thou/uL (0.11-0.59); #Neutrophils 3.2 thou/uL (1.40-6.50); %Eosinophils 4.4 % (0.0-10.0); %Lymphocytes 19.4 % (21.0-51.0); %Neutrophils 64.1 % (42.0-75.0); Hemoglobin 8.4 g/dL (12.0-16.0); Mean Corpuscular HGB CONC 31.9 g/dL (32.0-36.0); Mean Corpuscular Hemoglobin 29.5 pg (27.0-31.0); Mean Corpuscular Volume 92.4 fL (78.0-98.0); Mean Platelet Volume 6.7 fL (7.4-10.4); Platelet Count 275 thou/uL (130-400); RBC Distribution Width 15.9 % (11.5-14.5); Red Blood Cell (RBC) Count 2.86 mill/uL (4.20-5.40)
[2021-10-09 05:57] LABS: Anion Gap 18 mmol/L (10-20); BUN (Urea Nitrogen) 33 mg/dL (9.8-20.1); Calc. Creatinine Clearance 6 mL/min (70-130); Calcium 10.3 mg/dL (7.8-10.44); Carbon Dioxide 24 mmol/L (22-29); Chloride 84 mmol/L (98-107); Glucose 80 mg/dL (70-105); Magnesium 1.9 mg/dL (1.6-2.6); Phosphorus 4.1 mg/dL (2.3-4.7); Potassium 5.2 mmol/L (3.5-5.1); Sodium 121 mmol/L (136-145)
[2021-10-09] MEDS: Artificial Tear Sol 15 ML BOT EA EYE SCH (09:05)
[2021-10-09] MEDS: Benzonatate 100 MG CAP PO SCH ×3 (09:05→19:43)
[2021-10-09] MEDS: Calcitriol 0.25 MCG CAP PO SCH (10:41)
[2021-10-09] MEDS: Sevelamer Carbonate 800 MG TAB PO SCH ×3 (10:41→15:50)
[2021-10-09] MEDS: hydrALAZINE 25 MG TAB PO SCH ×2 (10:42→15:49)
[2021-10-09] MEDS: Simethicone Chewable 80 MG TAB PO SCH ×2 (10:42→11:03)
[2021-10-09] MEDS: Carvedilol 6.25 MG TAB PO SCH (10:42)
[2021-10-09] MEDS: cloNIDine 0.1 MG TAB PO SCH (10:42)
[2021-10-09 12:05] VITALS: TEMP 97.9
[2021-10-09] MEDS: Amlodipine 10 MG TAB PO SCH (15:47)
[2021-10-09] MEDS: Montelukast Sodium 10 mg Tablet PO SCH (15:48)
[2021-10-09] MEDS: Minoxidil 2.5 MG TAB PO SCH (15:48)
[2021-10-09 20:17] VITALS: BP 130/61
== END 2021-10-09 19:55 | disposition home or self-care (01) | DRG 640 ==
LOC: ERS 11:18 → IMCU/EMU 16:05 → 2NO 10-03 22:53
PROVIDERS: ADMIT Internal Medicine; ATTEND Hospitalist
PROC: 5A1D70Z Performance of Urinary Filtration, Intermittent, Less than 6 Hours Per Day (ICD-10-PCS; principal; 2021-10-02)
PROC: 06HY33Z Insertion of Infusion Device into Lower Vein, Percutaneous Approach (ICD-10-PCS; 2021-10-02)
DX: E87.5 Hyperkalemia (principal); Z20.822 Contact with and (suspected) exposure to COVID-19; N18.6 End stage renal disease; E44.0 Moderate protein-calorie malnutrition; Z68.1 Body mass index [BMI] 19.9 or less, adult; I12.0 Hypertensive chronic kidney disease with stage 5 chronic kidney disease or end stage renal disease; E87.1 Hypo-osmolality and hyponatremia; I16.0 Hypertensive urgency; E11.22 Type 2 diabetes mellitus with diabetic chronic kidney disease; J45.909 Unspecified asthma, uncomplicated; G43.019 Migraine without aura, intractable, without status migrainosus; E11.649 Type 2 diabetes mellitus with hypoglycemia without coma; E78.5 Hyperlipidemia, unspecified; D63.1 Anemia in chronic kidney disease; F41.9 Anxiety disorder, unspecified; K21.9 Gastro-esophageal reflux disease without esophagitis; G47.00 Insomnia, unspecified; E87.70 Fluid overload, unspecified; K59.00 Constipation, unspecified; H53.141 Visual discomfort, right eye; E83.39 Other disorders of phosphorus metabolism; R05.9 Cough, unspecified; R10.13 Epigastric pain; Z99.2 Dependence on renal dialysis; Z79.899 Other long term (current) drug therapy; Z91.14 Patient's other noncompliance with medication regimen; Z91.15 Patient's noncompliance with renal dialysis; Z84.1 Family history of disorders of kidney and ureter; Z87.891 Personal history of nicotine dependence; Z86.16 Personal history of COVID-19
CPT/HCPCS: 36415; 36416; 36556; 70450; 71045; 74176; 74177; 80048; 80053; 82553; 83036; 83690; 83735; 84100; 84484; 85025; 85610; 85730; 86140; 86850; 86900; 86901; 87340; 90935; 93005; 94640; 96374; 96375; 96376; G0257; J0360; J1815; J2060; J2270; J2405; J2765; J7070; J7620; Q5105; Q9967; U0003; U0005

== ENCOUNTER 2021-10-16 17:58 | Inpatient (IN) | payer OTHER ==
[2021-10-16 18:49] LABS: #Eosinphils 0.2 thou/uL (0.0-0.7); #Lymphocytes 0.9 thou/uL (1.20-3.40); #Monocytes 0.7 thou/uL (0.11-0.59); #Neutrophils 7.3 thou/uL (1.40-6.50); %Eosinophils 1.8 % (0.0-10.0); %Lymphocytes 9.8 % (21.0-51.0); %Monocytes 7.9 % (0.0-10.0); %Neutrophils 80.5 % (42.0-75.0); Hemoglobin 8.5 g/dL (12.0-16.0); Mean Corpuscular HGB CONC 31.5 g/dL (32.0-36.0); Mean Corpuscular Hemoglobin 30.3 pg (27.0-31.0); Mean Corpuscular Volume 96.4 fL (78.0-98.0); Mean Platelet Volume 6.1 fL (7.4-10.4); Platelet Count 289 thou/uL (130-400); RBC Distribution Width 17.3 % (11.5-14.5); White Blood Cell (WBC) Count 9.1 thou/uL (4.8-10.8)
[2021-10-16 19:12] LABS: ALT (SGPT) Less than 7 U/L (8-55); AST (SGOT) 17 U/L (5-34); Albumin 3.2 g/dL (3.5-5.0); Alkaline Phosphatase 55 U/L (40-110); Anion Gap 22 mmol/L (10-20); BUN (Urea Nitrogen) 46 mg/dL (9.8-20.1); Bilirubin, Total 0.6 mg/dL (0.2-1.2); Calc. Creatinine Clearance 0 mL/min (70-130); Calcium 9.7 mg/dL (7.8-10.44); Carbon Dioxide 23 mmol/L (22-29); Chloride 93 mmol/L (98-107); Globulin 2.7 g/dL (2.4-3.5); Potassium 5.1 mmol/L (3.5-5.1); Protein, Total 5.9 g/dL (6.0-8.3); Sodium 133 mmol/L (136-145)
[2021-10-16 19:24] LABS: Glucose 43 mg/dL (70-105)
[2021-10-16 19:46] LABS: CKMB 0.7 ng/mL (0-6.6)
[2021-10-16] MEDS ORDERED: Cefepime 2 GM VIAL ONE (22:49)
[2021-10-17] MEDS ORDERED: Acetaminophen 325 MG TAB ONE (00:10)
[2021-10-17] MEDS ORDERED: hydrALAZINE 20 MG/ML VIAL ONE (00:11)
[2021-10-17] MEDS: Acetaminophen 325 MG TAB PO PRN ×2 (00:22→16:09)
[2021-10-17] MEDS: hydrALAZINE 20 MG/ML VIAL SLOW IVP PRN ×2 (00:23→05:01)
[2021-10-17] MEDS ORDERED: Ondansetron PF 4 MG/2 ML Vial ONE (00:43)
[2021-10-17] MEDS: Ondansetron PF 4 MG/2 ML Vial IVP PRN ×2 (00:49→20:56)
[2021-10-17 04:39] LABS: Troponin I 0.036 ng/mL (< 0.028)
[2021-10-17] MEDS ORDERED: Dextrose 50% Abboject 50 ML SYRINGE SLOW IVP PRN (04:44)
[2021-10-17] MEDS ORDERED: Dextrose 5% in Water 1,000 ML IV PRN (04:44)
[2021-10-17] MEDS ORDERED: Dextrose 10% in Water 1,000 ML IV SCH (04:45)
[2021-10-17 06:25] LABS: #Eosinphils 0.2 thou/uL (0.0-0.7); #Monocytes 0.9 thou/uL (0.11-0.59); #Neutrophils 7.6 thou/uL (1.40-6.50); %Basophils 0.2 % (0.0-1.0); %Eosinophils 2.4 % (0.0-10.0); %Monocytes 9.1 % (0.0-10.0); %Neutrophils 78.2 % (42.0-75.0); Hemoglobin 8.5 g/dL (12.0-16.0); Mean Corpuscular Hemoglobin 30.1 pg (27.0-31.0); Mean Platelet Volume 6.3 fL (7.4-10.4); Platelet Count 295 thou/uL (130-400); RBC Distribution Width 17.9 % (11.5-14.5); Red Blood Cell (RBC) Count 2.83 mill/uL (4.20-5.40); White Blood Cell (WBC) Count 9.7 thou/uL (4.8-10.8)
[2021-10-17] MEDS ORDERED: Carvedilol 6.25 MG TAB PO SCH (06:30)
[2021-10-17 06:42] LABS: Anion Gap 18 mmol/L (10-20); BUN (Urea Nitrogen) 50 mg/dL (9.8-20.1); Calc. Creatinine Clearance 4 mL/min (70-130); Calcium 9.8 mg/dL (7.8-10.44); Carbon Dioxide 25 mmol/L (22-29); Chloride 91 mmol/L (98-107); Sodium 129 mmol/L (136-145)
[2021-10-17 06:46] LABS: Glucose 55 mg/dL (70-105)
[2021-10-17] MEDS ORDERED: Dextrose 50% Abboject 50 ML SYRINGE ONE (06:54)
[2021-10-17 06:57] LABS: SARS-CoV-2 NAA Rapid Test Not Detected (NotDetected)
[2021-10-17] MEDS: Heparin 5,000 UNITS/ML VIAL SC SCH ×2 (09:21→20:56)
[2021-10-17] MEDS: Carvedilol 6.25 MG TAB PO SCH (16:09)
[2021-10-17] MEDS: hydrALAZINE 25 MG TAB PO SCH ×2 (16:09→20:57)
[2021-10-17] MEDS ORDERED: FLU VACC QS2021-22(6MOS UP)/PF 60 MCG/0.5 ML SYRINGE IM ONE (16:45)
[2021-10-17] MEDS: cloNIDine 0.1 MG TAB PO SCH (20:56)
[2021-10-18] MEDS: hydrALAZINE 20 MG/ML VIAL SLOW IVP PRN (03:47)
[2021-10-18] MEDS: Acetaminophen 325 MG TAB PO PRN ×4 (03:47→21:16)
[2021-10-18 05:46] LABS: #Eosinphils 0.3 thou/uL (0.0-0.7); #Lymphocytes 0.7 thou/uL (1.20-3.40); #Monocytes 0.7 thou/uL (0.11-0.59); #Neutrophils 5.6 thou/uL (1.40-6.50); %Basophils 0.4 % (0.0-1.0); %Eosinophils 3.9 % (0.0-10.0); %Monocytes 9.7 % (0.0-10.0); %Neutrophils 75.9 % (42.0-75.0); Hemoglobin 7.4 g/dL (12.0-16.0); Mean Corpuscular HGB CONC 30.8 g/dL (32.0-36.0); Mean Corpuscular Hemoglobin 29.8 pg (27.0-31.0); Mean Corpuscular Volume 96.9 fL (78.0-98.0); Mean Platelet Volume 6.3 fL (7.4-10.4); Platelet Count 244 thou/uL (130-400); RBC Distribution Width 17.8 % (11.5-14.5); Red Blood Cell (RBC) Count 2.48 mill/uL (4.20-5.40); White Blood Cell (WBC) Count 7.4 thou/uL (4.8-10.8)
[2021-10-18 05:59] LABS: Anion Gap 16 mmol/L (10-20); BUN (Urea Nitrogen) 25 mg/dL (9.8-20.1); Calc. Creatinine Clearance 7 mL/min (70-130); Calcium 9.3 mg/dL (7.8-10.44); Carbon Dioxide 27 mmol/L (22-29); Chloride 93 mmol/L (98-107); Glucose 75 mg/dL (70-105); Potassium 4.1 mmol/L (3.5-5.1); Sodium 132 mmol/L (136-145)
[2021-10-18] MEDS ORDERED: EPOETIN ALFA-EPBX (ESRD) 4,000 UNIT/ML VIAL SC SCH (08:00)
[2021-10-18] MEDS: Heparin 5,000 UNITS/ML VIAL SC SCH ×2 (08:58→21:16)
[2021-10-18] MEDS: hydrALAZINE 25 MG TAB PO SCH ×3 (08:59→21:15)
[2021-10-18] MEDS: Carvedilol 6.25 MG TAB PO SCH ×2 (08:59→17:58)
[2021-10-18] MEDS: Minoxidil 2.5 MG TAB PO SCH (09:00)
[2021-10-18] MEDS: Losartan 25 MG TAB PO SCH (09:00)
[2021-10-18] MEDS: Amlodipine 10 MG TAB PO SCH (09:01)
[2021-10-18] MEDS: cloNIDine 0.1 MG TAB PO SCH ×2 (09:01→21:15)
[2021-10-19 04:36] LABS: #Eosinphils 0.4 thou/uL (0.0-0.7); #Lymphocytes 0.6 thou/uL (1.20-3.40); #Monocytes 0.7 thou/uL (0.11-0.59); #Neutrophils 4.1 thou/uL (1.40-6.50); %Basophils 0.4 % (0.0-1.0); %Eosinophils 6.2 % (0.0-10.0); %Monocytes 12.7 % (0.0-10.0); %Neutrophils 70.7 % (42.0-75.0); Hemoglobin 6.9 g/dL (12.0-16.0); Mean Corpuscular HGB CONC 30.5 g/dL (32.0-36.0); Mean Corpuscular Hemoglobin 30.7 pg (27.0-31.0); Mean Platelet Volume 6.3 fL (7.4-10.4); Platelet Count 223 thou/uL (130-400); RBC Distribution Width 17.4 % (11.5-14.5); Red Blood Cell (RBC) Count 2.24 mill/uL (4.20-5.40); White Blood Cell (WBC) Count 5.8 thou/uL (4.8-10.8)
[2021-10-19 04:54] LABS: Anion Gap 12 mmol/L (10-20); BUN (Urea Nitrogen) 18 mg/dL (9.8-20.1); Calc. Creatinine Clearance 11 mL/min (70-130); Calcium 8.9 mg/dL (7.8-10.44); Carbon Dioxide 29 mmol/L (22-29); Chloride 95 mmol/L (98-107); Glucose 81 mg/dL (70-105); Sodium 132 mmol/L (136-145)
[2021-10-19] MEDS: Acetaminophen 325 MG TAB PO PRN ×2 (05:10→20:32)
[2021-10-19] MEDS: Ondansetron PF 4 MG/2 ML Vial IVP PRN (05:10)
[2021-10-19] MEDS: cloNIDine 0.1 MG TAB PO SCH ×2 (08:28→20:33)
[2021-10-19] MEDS: Losartan 25 MG TAB PO SCH (08:28)
[2021-10-19] MEDS: Minoxidil 2.5 MG TAB PO SCH (08:29)
[2021-10-19] MEDS: Amlodipine 10 MG TAB PO SCH (08:30)
[2021-10-19] MEDS: Heparin 5,000 UNITS/ML VIAL SC SCH ×2 (08:30→20:33)
[2021-10-19] MEDS: Carvedilol 6.25 MG TAB PO SCH ×2 (08:30→17:00)
[2021-10-19] MEDS: hydrALAZINE 25 MG TAB PO SCH ×3 (08:30→20:33)
[2021-10-19] MEDS: hydrALAZINE 20 MG/ML VIAL SLOW IVP PRN (23:56)
[2021-10-20 04:42] LABS: #Eosinphils 0.3 thou/uL (0.0-0.7); #Lymphocytes 0.8 thou/uL (1.20-3.40); #Monocytes 0.8 thou/uL (0.11-0.59); #Neutrophils 5.7 thou/uL (1.40-6.50); %Basophils 0.5 % (0.0-1.0); %Eosinophils 4.3 % (0.0-10.0); %Lymphocytes 9.9 % (21.0-51.0); %Monocytes 10.3 % (0.0-10.0); %Neutrophils 74.9 % (42.0-75.0); Hemoglobin 6.9 g/dL (12.0-16.0); Mean Corpuscular HGB CONC 31.1 g/dL (32.0-36.0); Mean Corpuscular Hemoglobin 30.3 pg (27.0-31.0); Mean Corpuscular Volume 97.3 fL (78.0-98.0); Mean Platelet Volume 6.3 fL (7.4-10.4); Platelet Count 211 thou/uL (130-400); RBC Distribution Width 17.2 % (11.5-14.5); Red Blood Cell (RBC) Count 2.26 mill/uL (4.20-5.40); White Blood Cell (WBC) Count 7.6 thou/uL (4.8-10.8)
[2021-10-20 05:10] LABS: Anion Gap 14 mmol/L (10-20); BUN (Urea Nitrogen) 35 mg/dL (9.8-20.1); Calc. Creatinine Clearance 7 mL/min (70-130); Calcium 9.7 mg/dL (7.8-10.44); Carbon Dioxide 26 mmol/L (22-29); Chloride 91 mmol/L (98-107); Glucose 77 mg/dL (70-105); Potassium 4.4 mmol/L (3.5-5.1); Sodium 127 mmol/L (136-145)
[2021-10-20] MEDS: Acetaminophen 325 MG TAB PO PRN (08:40)
[2021-10-20] MEDS: Heparin 5,000 UNITS/ML VIAL SC SCH ×2 (08:41→21:39)
[2021-10-20] MEDS: Amlodipine 10 MG TAB PO SCH (08:41)
[2021-10-20] MEDS: Minoxidil 2.5 MG TAB PO SCH (08:42)
[2021-10-20] MEDS: hydrALAZINE 25 MG TAB PO SCH ×3 (08:42→21:39)
[2021-10-20] MEDS: cloNIDine 0.1 MG TAB PO SCH ×2 (08:44→21:39)
[2021-10-20] MEDS: Losartan 25 MG TAB PO SCH (08:44)
[2021-10-20] MEDS: Carvedilol 6.25 MG TAB PO SCH ×2 (08:44→16:03)
[2021-10-20] MEDS: Ondansetron PF 4 MG/2 ML Vial IVP PRN (08:45)
[2021-10-20] MEDS ORDERED: EPOETIN ALFA-EPBX (ESRD) 3,000 UNIT/ML VIAL SC SCH (10:00)
[2021-10-20 14:25] LABS: SARS-CoV-2 NAA Rapid Test Not Detected (NotDetected)
[2021-10-20] MEDS ORDERED: Melatonin 3 MG TAB PO SCH (22:15)
[2021-10-21] MEDS: Acetaminophen 325 MG TAB PO PRN ×3 (04:07→21:03)
[2021-10-21 05:08] LABS: #Eosinphils 0.3 thou/uL (0.0-0.7); #Lymphocytes 0.8 thou/uL (1.20-3.40); #Monocytes 0.9 thou/uL (0.11-0.59); #Neutrophils 5.5 thou/uL (1.40-6.50); %Basophils 0.3 % (0.0-1.0); %Eosinophils 3.6 % (0.0-10.0); %Lymphocytes 10.7 % (21.0-51.0); %Monocytes 11.6 % (0.0-10.0); %Neutrophils 73.9 % (42.0-75.0); Hemoglobin 8.1 g/dL (12.0-16.0); Mean Corpuscular HGB CONC 32.1 g/dL (32.0-36.0); Mean Corpuscular Hemoglobin 31.7 pg (27.0-31.0); Mean Corpuscular Volume 98.8 fL (78.0-98.0); Mean Platelet Volume 6.2 fL (7.4-10.4); Platelet Count 203 thou/uL (130-400); Red Blood Cell (RBC) Count 2.54 mill/uL (4.20-5.40); White Blood Cell (WBC) Count 7.4 thou/uL (4.8-10.8)
[2021-10-21 05:32] LABS: Anion Gap 13 mmol/L (10-20); BUN (Urea Nitrogen) 26 mg/dL (9.8-20.1); Calc. Creatinine Clearance 12 mL/min (70-130); Calcium 9.3 mg/dL (7.8-10.44); Carbon Dioxide 28 mmol/L (22-29); Chloride 95 mmol/L (98-107); Glucose 71 mg/dL (70-105); Potassium 4.7 mmol/L (3.5-5.1); Sodium 131 mmol/L (136-145)
[2021-10-21] MEDS ORDERED: Regadenoson 0.4 MG/5 ML SYRINGE ONE (08:52)
[2021-10-21] MEDS: hydrALAZINE 25 MG TAB PO SCH ×3 (10:00→21:03)
[2021-10-21] MEDS: Heparin 5,000 UNITS/ML VIAL SC SCH ×2 (11:58→21:04)
[2021-10-21] MEDS: Losartan 25 MG TAB PO SCH (11:58)
[2021-10-21] MEDS: Amlodipine 10 MG TAB PO SCH (12:00)
[2021-10-21] MEDS: Minoxidil 2.5 MG TAB PO SCH (12:00)
[2021-10-21] MEDS: cloNIDine 0.1 MG TAB PO SCH ×2 (12:00→21:03)
[2021-10-21] MEDS: Carvedilol 6.25 MG TAB PO SCH ×2 (12:01→16:40)
[2021-10-21] MEDS: Simethicone Chewable 80 MG TAB PO PRN (16:39)
[2021-10-22] MEDS: Acetaminophen 325 MG TAB PO PRN ×3 (02:08→13:21)
[2021-10-22] MEDS: hydrALAZINE 20 MG/ML VIAL SLOW IVP PRN (06:49)
[2021-10-22] MEDS: Simethicone Chewable 80 MG TAB PO PRN (08:05)
[2021-10-22] MEDS: Carvedilol 6.25 MG TAB PO SCH ×2 (08:05→17:34)
[2021-10-22] MEDS: Famotidine 20 MG TAB PO SCH ×2 (08:05→22:16)
[2021-10-22] MEDS: hydrALAZINE 25 MG TAB PO SCH ×3 (08:06→22:16)
[2021-10-22] MEDS: Losartan 25 MG TAB PO SCH (08:07)
[2021-10-22] MEDS: Minoxidil 2.5 MG TAB PO SCH (08:07)
[2021-10-22] MEDS: Amlodipine 10 MG TAB PO SCH (08:07)
[2021-10-22] MEDS: cloNIDine 0.1 MG TAB PO SCH ×2 (08:08→22:16)
[2021-10-22] MEDS: Heparin 5,000 UNITS/ML VIAL SC SCH ×2 (08:10→22:15)
[2021-10-22] MEDS: Albuterol 200 PUFF (6.7GM INHALER) INH SCH ×4 (10:19→22:17)
[2021-10-22] MEDS: Ondansetron PF 4 MG/2 ML Vial IVP PRN (17:02)
[2021-10-22] MEDS: traMADol HCl 50 MG TAB PO PRN (17:34)
[2021-10-23] MEDS: traMADol HCl 50 MG TAB PO PRN (03:43)
[2021-10-23] MEDS: Albuterol 200 PUFF (6.7GM INHALER) INH SCH ×3 (10:30→18:18)
[2021-10-23] MEDS: Amlodipine 10 MG TAB PO SCH (12:27)
[2021-10-23] MEDS: Losartan 25 MG TAB PO SCH (12:27)
[2021-10-23] MEDS: hydrALAZINE 25 MG TAB PO SCH ×3 (12:28→20:09)
[2021-10-23] MEDS: Carvedilol 6.25 MG TAB PO SCH ×2 (12:28→16:15)
[2021-10-23] MEDS: Minoxidil 2.5 MG TAB PO SCH (12:28)
[2021-10-23] MEDS: Heparin 5,000 UNITS/ML VIAL SC SCH ×2 (12:29→20:09)
[2021-10-23] MEDS: Famotidine 20 MG TAB PO SCH ×2 (12:29→20:10)
[2021-10-23] MEDS: Calcitriol 0.25 MCG CAP PO SCH ×2 (12:29→20:10)
[2021-10-23] MEDS: cloNIDine 0.1 MG TAB PO SCH ×2 (12:29→20:10)
[2021-10-23] MEDS: Mirtazapine 15 MG TAB PO SCH (20:10)
[2021-10-23] MEDS: Atorvastatin Calcium 10 MG TAB PO SCH (20:10)
[2021-10-23] MEDS: Acetaminophen 325 MG TAB PO PRN (20:21)
[2021-10-24] MEDS: Albuterol 200 PUFF (6.7GM INHALER) INH SCH ×5 (01:13→23:38)
[2021-10-24] MEDS: traMADol HCl 50 MG TAB PO PRN ×4 (01:13→20:21)
[2021-10-24 05:21] LABS: Anion Gap 15 mmol/L (10-20); BUN (Urea Nitrogen) 28 mg/dL (9.8-20.1); Calc. Creatinine Clearance 11 mL/min (70-130); Calcium 9.6 mg/dL (7.8-10.44); Carbon Dioxide 28 mmol/L (22-29); Chloride 93 mmol/L (98-107); Glucose 74 mg/dL (70-105); Potassium 4.5 mmol/L (3.5-5.1); Sodium 131 mmol/L (136-145)
[2021-10-24 06:48] LABS: Band 8 % (5-11); Eosinophils 3 % (0-10); Hemoglobin 8.1 g/dL (12.0-16.0); Lymphocytes 11 % (21-51); MDiff Complete? YES; Mean Corpuscular HGB CONC 32.2 g/dL (32.0-36.0); Mean Corpuscular Hemoglobin 31.8 pg (27.0-31.0); Mean Corpuscular Volume 98.9 fL (78.0-98.0); Mean Platelet Volume 6.5 fL (7.4-10.4); Monocytes 12 % (0-10); Neutrophil 66 % (42-75); Platelet Count 270 thou/uL (130-400); RBC Distribution Width 15.7 % (11.5-14.5); Red Blood Cell (RBC) Count 2.55 mill/uL (4.20-5.40)
[2021-10-24 08:37] LABS: SARS-CoV-2 PCR by NAA Not Detected (NotDetected)
[2021-10-24] MEDS: Heparin 5,000 UNITS/ML VIAL SC SCH ×2 (09:12→20:22)
[2021-10-24] MEDS: Famotidine 20 MG TAB PO SCH ×2 (09:13→20:20)
[2021-10-24] MEDS: Minoxidil 2.5 MG TAB PO SCH (09:13)
[2021-10-24] MEDS: Losartan 25 MG TAB PO SCH (09:13)
[2021-10-24] MEDS: Amlodipine 10 MG TAB PO SCH (09:13)
[2021-10-24] MEDS: cloNIDine 0.1 MG TAB PO SCH ×2 (09:13→20:20)
[2021-10-24] MEDS: hydrALAZINE 25 MG TAB PO SCH ×3 (09:14→20:19)
[2021-10-24] MEDS: Carvedilol 6.25 MG TAB PO SCH ×2 (09:14→17:19)
[2021-10-24] MEDS: Calcitriol 0.25 MCG CAP PO SCH ×2 (09:14→20:19)
[2021-10-24] MEDS: Atorvastatin Calcium 10 MG TAB PO SCH (20:20)
[2021-10-24] MEDS: Acetaminophen 325 MG TAB PO PRN (20:20)
[2021-10-24] MEDS: Mirtazapine 15 MG TAB PO SCH (20:20)
[2021-10-25] MEDS: Acetaminophen 325 MG TAB PO PRN ×2 (03:28→20:08)
[2021-10-25] MEDS: traMADol HCl 50 MG TAB PO PRN ×2 (03:30→20:08)
[2021-10-25] MEDS: hydrALAZINE 20 MG/ML VIAL SLOW IVP PRN (03:31)
[2021-10-25] MEDS: Albuterol 200 PUFF (6.7GM INHALER) INH SCH ×3 (05:34→20:06)
[2021-10-25] MEDS ORDERED: EPOETIN ALFA-EPBX (ESRD) 10,000 UNIT/ML VIAL SC SCH (09:00)
[2021-10-25 10:58] VITALS: BMI 22.6
[2021-10-25] MEDS: Carvedilol 6.25 MG TAB PO SCH ×2 (13:25→16:01)
[2021-10-25] MEDS: cloNIDine 0.1 MG TAB PO SCH ×2 (13:26→20:08)
[2021-10-25] MEDS: Losartan 25 MG TAB PO SCH (13:26)
[2021-10-25] MEDS: Famotidine 20 MG TAB PO SCH ×2 (13:27→20:07)
[2021-10-25] MEDS: hydrALAZINE 25 MG TAB PO SCH ×3 (13:27→20:08)
[2021-10-25] MEDS: Amlodipine 10 MG TAB PO SCH (13:27)
[2021-10-25] MEDS: Heparin 5,000 UNITS/ML VIAL SC SCH ×2 (13:28→20:07)
[2021-10-25] MEDS: Calcitriol 0.25 MCG CAP PO SCH ×2 (13:28→20:08)
[2021-10-25] MEDS: Minoxidil 2.5 MG TAB PO SCH (13:28)
[2021-10-25 15:08] LABS: Magnesium 1.8 mg/dL (1.6-2.6); Phosphorus 2.4 mg/dL (2.3-4.7)
[2021-10-25] MEDS: Mirtazapine 15 MG TAB PO SCH (20:07)
[2021-10-25] MEDS: Atorvastatin Calcium 10 MG TAB PO SCH (20:08)
[2021-10-26] MEDS: Albuterol 200 PUFF (6.7GM INHALER) INH SCH ×4 (00:28→18:31)
[2021-10-26] MEDS: Acetaminophen 325 MG TAB PO PRN (08:39)
[2021-10-26] MEDS: Losartan 25 MG TAB PO SCH (08:40)
[2021-10-26] MEDS: hydrALAZINE 25 MG TAB PO SCH ×3 (08:40→20:28)
[2021-10-26] MEDS: Calcitriol 0.25 MCG CAP PO SCH ×2 (08:40→20:28)
[2021-10-26] MEDS: cloNIDine 0.1 MG TAB PO SCH ×2 (08:41→20:29)
[2021-10-26] MEDS: Carvedilol 6.25 MG TAB PO SCH ×2 (08:41→16:37)
[2021-10-26] MEDS: Minoxidil 2.5 MG TAB PO SCH (08:41)
[2021-10-26] MEDS: Heparin 5,000 UNITS/ML VIAL SC SCH ×2 (08:42→20:28)
[2021-10-26] MEDS: traMADol HCl 50 MG TAB PO PRN (08:42)
[2021-10-26] MEDS: Famotidine 20 MG TAB PO SCH ×2 (08:42→20:29)
[2021-10-26] MEDS: Amlodipine 10 MG TAB PO SCH (08:42)
[2021-10-26] MEDS ORDERED: GUAIFENESIN SF SOLN 200 MG/10 ML UDCUP PO PRN (09:26)
[2021-10-26] MEDS: Mirtazapine 15 MG TAB PO SCH (20:29)
[2021-10-26] MEDS: Atorvastatin Calcium 10 MG TAB PO SCH (20:29)
[2021-10-27] MEDS: Albuterol 200 PUFF (6.7GM INHALER) INH SCH ×4 (01:12→18:30)
[2021-10-27 04:25] LABS: %Eosinophils 2.9 % (0.0-10.0); %Lymphocytes 7.7 % (21.0-51.0); %Monocytes 11.5 % (0.0-10.0); %Neutrophils 77.6 % (42.0-75.0); Hemoglobin 7.6 g/dL (12.0-16.0); Mean Corpuscular HGB CONC 31.9 g/dL (32.0-36.0); Mean Corpuscular Hemoglobin 31.1 pg (27.0-31.0); Mean Corpuscular Volume 97.7 fL (78.0-98.0); Mean Platelet Volume 5.9 fL (7.4-10.4); Platelet Count 326 thou/uL (130-400); RBC Distribution Width 15.6 % (11.5-14.5); Red Blood Cell (RBC) Count 2.45 mill/uL (4.20-5.40); White Blood Cell (WBC) Count 9.3 thou/uL (4.8-10.8)
[2021-10-27 04:26] LABS: #Eosinphils 0.3 thou/uL (0.0-0.7); #Lymphocytes 0.7 thou/uL (1.20-3.40); #Monocytes 1.1 thou/uL (0.11-0.59); #Neutrophils 7.2 thou/uL (1.40-6.50); %Basophils 0.2 % (0.0-1.0)
[2021-10-27 04:43] LABS: Anion Gap 17 mmol/L (10-20); BUN (Urea Nitrogen) 41 mg/dL (9.8-20.1); Calc. Creatinine Clearance 9 mL/min (70-130); Calcium 10.5 mg/dL (7.8-10.44); Carbon Dioxide 29 mmol/L (22-29); Chloride 92 mmol/L (98-107); Glucose 78 mg/dL (70-105); Potassium 4.7 mmol/L (3.5-5.1); Sodium 133 mmol/L (136-145)
[2021-10-27] MEDS: Acetaminophen 325 MG TAB PO PRN ×2 (06:57→14:48)
[2021-10-27] MEDS ORDERED: PROPOFOL 200 MG/20 ML VIAL ONE (08:54)
[2021-10-27] MEDS: Famotidine 20 MG TAB PO SCH ×2 (10:31→20:51)
[2021-10-27] MEDS: Calcitriol 0.25 MCG CAP PO SCH (10:31)
[2021-10-27] MEDS: Carvedilol 6.25 MG TAB PO SCH ×2 (10:31→17:19)
[2021-10-27] MEDS: cloNIDine 0.1 MG TAB PO SCH ×2 (10:31→20:51)
[2021-10-27] MEDS: hydrALAZINE 25 MG TAB PO SCH ×3 (10:32→20:51)
[2021-10-27] MEDS: Heparin 5,000 UNITS/ML VIAL SC SCH ×2 (10:32→20:52)
[2021-10-27] MEDS: Amlodipine 10 MG TAB PO SCH (14:47)
[2021-10-27] MEDS: Losartan 25 MG TAB PO SCH (14:47)
[2021-10-27] MEDS: Minoxidil 2.5 MG TAB PO SCH (14:48)
[2021-10-27] MEDS: Simethicone Chewable 80 MG TAB PO PRN (14:49)
[2021-10-27 17:55] LABS: SARS-CoV-2 PCR by NAA Not Detected (NotDetected)
[2021-10-27] MEDS: Atorvastatin Calcium 10 MG TAB PO SCH (20:52)
[2021-10-27] MEDS: Mirtazapine 15 MG TAB PO SCH (20:53)
[2021-10-27] MEDS ORDERED: Famotidine 20 MG TAB PO SCH (21:00)
[2021-10-28] MEDS: Albuterol 200 PUFF (6.7GM INHALER) INH SCH ×3 (00:18→14:45)
[2021-10-28 04:37] LABS: #Basophils 0.1 thou/uL (0.0-0.2); #Eosinphils 0.2 thou/uL (0.0-0.7); #Lymphocytes 0.8 thou/uL (1.20-3.40); #Monocytes 0.9 thou/uL (0.11-0.59); #Neutrophils 6.4 thou/uL (1.40-6.50); %Basophils 0.6 % (0.0-1.0); %Eosinophils 2.5 % (0.0-10.0); %Lymphocytes 9.3 % (21.0-51.0); %Monocytes 10.9 % (0.0-10.0); %Neutrophils 76.6 % (42.0-75.0); Hemoglobin 7.2 g/dL (12.0-16.0); Mean Corpuscular HGB CONC 31.8 g/dL (32.0-36.0); Mean Corpuscular Hemoglobin 30.9 pg (27.0-31.0); Mean Corpuscular Volume 97.3 fL (78.0-98.0); Mean Platelet Volume 5.8 fL (7.4-10.4); Platelet Count 323 thou/uL (130-400); RBC Distribution Width 15.6 % (11.5-14.5); Red Blood Cell (RBC) Count 2.32 mill/uL (4.20-5.40); White Blood Cell (WBC) Count 8.3 thou/uL (4.8-10.8)
[2021-10-28 04:56] LABS: Anion Gap 14 mmol/L (10-20); BUN (Urea Nitrogen) 19 mg/dL (9.8-20.1); Calc. Creatinine Clearance 15 mL/min (70-130); Calcium 9.8 mg/dL (7.8-10.44); Carbon Dioxide 30 mmol/L (22-29); Chloride 96 mmol/L (98-107); Glucose 81 mg/dL (70-105); Potassium 3.7 mmol/L (3.5-5.1); Sodium 136 mmol/L (136-145)
[2021-10-28] MEDS: Acetaminophen 325 MG TAB PO PRN (06:19)
[2021-10-28] MEDS: Amlodipine 10 MG TAB PO SCH (08:41)
[2021-10-28] MEDS: cloNIDine 0.1 MG TAB PO SCH (08:41)
[2021-10-28] MEDS: Losartan 25 MG TAB PO SCH (08:41)
[2021-10-28] MEDS: Carvedilol 6.25 MG TAB PO SCH ×2 (08:41→16:28)
[2021-10-28] MEDS: Minoxidil 2.5 MG TAB PO SCH (08:41)
[2021-10-28] MEDS: Heparin 5,000 UNITS/ML VIAL SC SCH (08:42)
[2021-10-28] MEDS: hydrALAZINE 25 MG TAB PO SCH ×2 (08:42→15:35)
[2021-10-28] MEDS ORDERED: Polyethylene Glycol 3350 17 GM Packet PO SCH (09:00)
[2021-10-28] MEDS ORDERED: Calcitriol 0.25 MCG CAP PO SCH (09:00)
[2021-10-28 17:00] VITALS: BP 158/70; TEMP 98.7
[2021-10-28] MEDS ORDERED: Ferrous Sulfate 325 MG TAB PO SCH (17:00)
== END 2021-10-28 18:39 | disposition home or self-care (01) | DRG 682 ==
LOC: ERS 17:58 → ERHOLD 22:09 → OBSVTOIN 10-17 07:23 → 2NO 10-17 15:49
PROVIDERS: ADMIT Internal Medicine; ATTEND Family Medicine
PROC: 30233N1 Transfusion of Nonautologous Red Blood Cells into Peripheral Vein, Percutaneous Approach (ICD-10-PCS; principal; 2021-10-20)
PROC: 5A1D70Z Performance of Urinary Filtration, Intermittent, Less than 6 Hours Per Day (ICD-10-PCS; 2021-10-20)
PROC: 0DB78ZX Excision of Stomach, Pylorus, Via Natural or Artificial Opening Endoscopic, Diagnostic (ICD-10-PCS; 2021-10-27)
DX: I12.0 Hypertensive chronic kidney disease with stage 5 chronic kidney disease or end stage renal disease (principal); N18.6 End stage renal disease; J96.01 Acute respiratory failure with hypoxia; E87.1 Hypo-osmolality and hyponatremia; E87.70 Fluid overload, unspecified; Z20.822 Contact with and (suspected) exposure to COVID-19; R07.81 Pleurodynia; D63.1 Anemia in chronic kidney disease; E11.22 Type 2 diabetes mellitus with diabetic chronic kidney disease; E78.5 Hyperlipidemia, unspecified; J45.909 Unspecified asthma, uncomplicated; I16.0 Hypertensive urgency; E11.649 Type 2 diabetes mellitus with hypoglycemia without coma; R77.8 Other specified abnormalities of plasma proteins; K59.09 Other constipation; D50.9 Iron deficiency anemia, unspecified; E83.52 Hypercalcemia; R10.9 Unspecified abdominal pain; Z91.15 Patient's noncompliance with renal dialysis; Z99.2 Dependence on renal dialysis; Z91.14 Patient's other noncompliance with medication regimen; Z79.899 Other long term (current) drug therapy
CPT/HCPCS: 36415; 36416; 36430; 71045; 71046; 76705; 78451; 78452; 80048; 80053; 82553; 83735; 83880; 84100; 84443; 84484; 85025; 86850; 86870; 86900; 86901; 86921; 86922; 88305; 88313; 90935; 93005; 93017; 96374; 96375; A9500; A9540; G0257; G0378; J0360; J0692; J1644; J1956; J2405; J2704; J2785; P9016; Q5105; U0002; U0003; U0005

== ENCOUNTER 2021-11-06 12:37 | Inpatient (IN) | payer OTHER ==
[~2021-11-06 12:37] MED LIST: Heparin 1,000 UNITS/ML VIAL ONE
[2021-11-06 14:58] LABS: #Eosinphils 0.4 thou/uL (0.0-0.7); #Lymphocytes 1.3 thou/uL (1.20-3.40); #Monocytes 1.2 thou/uL (0.11-0.59); #Neutrophils 8.5 thou/uL (1.40-6.50); %Basophils 0.2 % (0.0-1.0); %Eosinophils 3.6 % (0.0-10.0); %Lymphocytes 11.6 % (21.0-51.0); %Monocytes 10.1 % (0.0-10.0); %Neutrophils 74.5 % (42.0-75.0); Hemoglobin 11.3 g/dL (12.0-16.0); Mean Corpuscular HGB CONC 31.3 g/dL (32.0-36.0); Mean Corpuscular Hemoglobin 29.5 pg (27.0-31.0); Mean Corpuscular Volume 94.4 fL (78.0-98.0); Platelet Count 566 thou/uL (130-400); RBC Distribution Width 18.8 % (11.5-14.5); Red Blood Cell (RBC) Count 3.83 mill/uL (4.20-5.40); White Blood Cell (WBC) Count 11.5 thou/uL (4.8-10.8)
[2021-11-06 15:02] LABS: Actual Bicarbonate (HCO3v) 21 mEq/L (22-28); Analyzer IN Cardio ER; Base Excess -3.1 mEq/L (-2.0 to +3.0); Calcium, Ionized (venous) 1.24 mmol/L (1.16-1.32); Chloride (VBG) 87 mmol/L (98-106); Hemoglobin (Hb) 12.1 g/dL (11.7-16.0); Potassium (VBG) 5.45 mmol/L (3.70-5.30); pH (venous) 7.39 (7.32-7.43)
[2021-11-06] MEDS ORDERED: Acetaminophen 500 MG TAB ONE (15:11)
[2021-11-06 15:32] LABS: ALT (SGPT) 8 U/L (8-55); AST (SGOT) 18 U/L (5-34); Albumin 3.2 g/dL (3.5-5.0); Alkaline Phosphatase 70 U/L (40-110); Anion Gap 27 mmol/L (10-20); BUN (Urea Nitrogen) 79 mg/dL (9.8-20.1); Bilirubin, Total 0.5 mg/dL (0.2-1.2); Calc. Creatinine Clearance 0 mL/min (70-130); Calcium 11.2 mg/dL (7.8-10.44); Carbon Dioxide 20 mmol/L (22-29); Chloride 86 mmol/L (98-107); Globulin 3.9 g/dL (2.4-3.5); Glucose 73 mg/dL (70-105); Magnesium 2.5 mg/dL (1.6-2.6); Potassium 5.6 mmol/L (3.5-5.1); Protein, Total 7.1 g/dL (6.0-8.3); Sodium 127 mmol/L (136-145)
[2021-11-06 15:45] LABS: CKMB 2.5 ng/mL (0-6.6)
[2021-11-06] MEDS ORDERED: Vancomycin 1 GM/200 ML BAG ONE (16:35)
[2021-11-06] MEDS ORDERED: hydrALAZINE 20 MG/ML VIAL ONE (16:37)
[2021-11-06] MEDS ORDERED: diphenhydrAMINE 25 MG CAP PO PRN (17:36)
[2021-11-06 17:41] LABS: SARS-CoV-2 NAA Rapid Test Not Detected (NotDetected)
[2021-11-06] MEDS ORDERED: Clindamycin/D5W 300 MG/50 ML BAG IVPB SCH (18:00)
[2021-11-06] MEDS ORDERED: Clindamycin/D5W 300 MG in Premix Bag 1 BAG IVPB SCH (18:00)
[2021-11-06 18:11] LABS: #Basophils 0.1 thou/uL (0.0-0.2); #Eosinphils 0.4 thou/uL (0.0-0.7); #Lymphocytes 1.9 thou/uL (1.20-3.40); #Monocytes 1.1 thou/uL (0.11-0.59); #Neutrophils 7.9 thou/uL (1.40-6.50); %Eosinophils 3.6 % (0.0-10.0); %Lymphocytes 16.3 % (21.0-51.0); %Neutrophils 69.1 % (42.0-75.0); Hemoglobin 12.1 g/dL (12.0-16.0); Mean Corpuscular HGB CONC 31.4 g/dL (32.0-36.0); Mean Corpuscular Volume 95.7 fL (78.0-98.0); Mean Platelet Volume 6.1 fL (7.4-10.4); Platelet Count 584 thou/uL (130-400); RBC Distribution Width 18.9 % (11.5-14.5); Red Blood Cell (RBC) Count 4.02 mill/uL (4.20-5.40); White Blood Cell (WBC) Count 11.4 thou/uL (4.8-10.8)
[2021-11-06 18:28] LABS: Anion Gap 28 mmol/L (10-20); BUN (Urea Nitrogen) 79 mg/dL (9.8-20.1); Calc. Creatinine Clearance 0 mL/min (70-130); Calcium 11.5 mg/dL (7.8-10.44); Carbon Dioxide 15 mmol/L (22-29); Chloride 88 mmol/L (98-107); Glucose 67 mg/dL (70-105); Phosphorus 7.4 mg/dL (2.3-4.7); Potassium 5.5 mmol/L (3.5-5.1); Sodium 125 mmol/L (136-145)
[2021-11-06 18:32] LABS: Troponin I 0.077 ng/mL (< 0.028)
[2021-11-06 21:27] LABS: Troponin I 0.085 ng/mL (< 0.028)
[2021-11-06 22:24] VITALS: BMI 21.6
[2021-11-06] MEDS: Atorvastatin Calcium 10 MG TAB PO SCH (22:31)
[2021-11-06] MEDS: Calcitriol 0.25 MCG CAP PO SCH (22:31)
[2021-11-06] MEDS: Heparin 5,000 UNITS/ML VIAL SC SCH (22:31)
[2021-11-06] MEDS: cloNIDine 0.1 MG TAB PO SCH (22:31)
[2021-11-06] MEDS: Carvedilol 6.25 MG TAB PO SCH (22:31)
[2021-11-06] MEDS: Acetaminophen 325 MG TAB PO PRN (22:32)
[2021-11-06] MEDS: hydrALAZINE 25 MG TAB PO SCH (22:32)
[2021-11-06] MEDS: Mirtazapine 15 MG TAB PO SCH (22:32)
[2021-11-06] MEDS: Clindamycin/D5W 300 MG in Premix Bag 1 BAG IVPB SCH (23:21)
[2021-11-07] MEDS: Acetaminophen 325 MG TAB PO PRN ×3 (03:14→20:51)
[2021-11-07] MEDS: hydrALAZINE 20 MG/ML VIAL SLOW IVP PRN (03:19)
[2021-11-07] MEDS ORDERED: Morphine 4 MG/ML VIAL SLOW IVP SCH (05:00)
[2021-11-07] MEDS: Clindamycin/D5W 300 MG in Premix Bag 1 BAG IVPB SCH ×4 (05:13→23:17)
[2021-11-07 05:53] LABS: Troponin I 0.101 ng/mL (< 0.028)
[2021-11-07 05:56] LABS: Anion Gap 16 mmol/L (10-20); BUN (Urea Nitrogen) 41 mg/dL (9.8-20.1); Calc. Creatinine Clearance 7 mL/min (70-130); Calcium 10.2 mg/dL (7.8-10.44); Carbon Dioxide 26 mmol/L (22-29); Chloride 92 mmol/L (98-107); Glucose 73 mg/dL (70-105); Potassium 4.3 mmol/L (3.5-5.1); Sodium 130 mmol/L (136-145)
[2021-11-07 06:21] LABS: #Basophils 0.1 thou/uL (0.0-0.2); #Eosinphils 0.4 thou/uL (0.0-0.7); %Basophils 0.6 % (0.0-1.0); %Eosinophils 4.5 % (0.0-10.0); %Lymphocytes 10.9 % (21.0-51.0); %Monocytes 10.1 % (0.0-10.0); %Neutrophils 73.9 % (42.0-75.0); Hemoglobin 10.7 g/dL (12.0-16.0); Mean Corpuscular HGB CONC 32.1 g/dL (32.0-36.0); Mean Corpuscular Hemoglobin 30.2 pg (27.0-31.0); Mean Corpuscular Volume 94.2 fL (78.0-98.0); Platelet Count 476 thou/uL (130-400); RBC Distribution Width 18.8 % (11.5-14.5); Red Blood Cell (RBC) Count 3.55 mill/uL (4.20-5.40); White Blood Cell (WBC) Count 9.5 thou/uL (4.8-10.8)
[2021-11-07] MEDS ORDERED: Epoetin (ESRD) 20,000 UNITS/ML SC SCH (08:45)
[2021-11-07] MEDS: cloNIDine 0.1 MG TAB PO SCH ×2 (10:37→20:50)
[2021-11-07] MEDS: Losartan 25 MG TAB PO SCH (10:38)
[2021-11-07] MEDS: Amlodipine 10 MG TAB PO SCH (10:39)
[2021-11-07] MEDS: Minoxidil 2.5 MG TAB PO SCH (10:39)
[2021-11-07] MEDS: Ferrous Sulfate 325 MG TAB PO SCH ×2 (10:39→18:06)
[2021-11-07] MEDS: hydrALAZINE 25 MG TAB PO SCH ×3 (10:40→20:51)
[2021-11-07] MEDS: Carvedilol 6.25 MG TAB PO SCH ×2 (10:40→18:06)
[2021-11-07] MEDS: Heparin 5,000 UNITS/ML VIAL SC SCH ×3 (10:43→20:50)
[2021-11-07] MEDS: Calcitriol 0.25 MCG CAP PO SCH ×2 (10:44→20:50)
[2021-11-07] MEDS ORDERED: EPOETIN ALFA-EPBX (ESRD) 4,000 UNIT/ML VIAL SC SCH (12:00)
[2021-11-07] MEDS ORDERED: HYDROmorphone 0.5 MG/0.5 ML SYRINGE SLOW IVP SCH ×2 (14:00)
[2021-11-07] MEDS: Ondansetron PF 4 MG/2 ML Vial IVP PRN (16:13)
[2021-11-07] MEDS: Atorvastatin Calcium 10 MG TAB PO SCH (20:50)
[2021-11-07] MEDS: Melatonin 3 MG TAB PO PRN (20:51)
[2021-11-07] MEDS: Mirtazapine 15 MG TAB PO SCH (20:51)
[2021-11-08] MEDS: Clindamycin/D5W 300 MG in Premix Bag 1 BAG IVPB SCH ×4 (05:15→22:29)
[2021-11-08 07:21] LABS: Hemoglobin 10.5 g/dL (12.0-16.0); Mean Corpuscular HGB CONC 30.6 g/dL (32.0-36.0); Mean Corpuscular Hemoglobin 29.7 pg (27.0-31.0); Mean Platelet Volume 6.1 fL (7.4-10.4); Platelet Count 474 thou/uL (130-400); RBC Distribution Width 18.6 % (11.5-14.5); Red Blood Cell (RBC) Count 3.53 mill/uL (4.20-5.40); White Blood Cell (WBC) Count 7.6 thou/uL (4.8-10.8)
[2021-11-08 07:38] LABS: Anion Gap 19 mmol/L (10-20); BUN (Urea Nitrogen) 50 mg/dL (9.8-20.1); Calc. Creatinine Clearance 5 mL/min (70-130); Calcium 9.9 mg/dL (7.8-10.44); Carbon Dioxide 24 mmol/L (22-29); Chloride 89 mmol/L (98-107); Glucose 75 mg/dL (70-105); Potassium 4.9 mmol/L (3.5-5.1); Sodium 127 mmol/L (136-145)
[2021-11-08 08:10] LABS: Band 2 % (5-11); Eosinophils 7 % (0-10); Lymphocytes 20 % (21-51); MDiff Complete? YES; Monocytes 4 % (0-10); Neutrophil 67 % (42-75); Platelet Morphology Comment Appears Increased; Polychromasia SLIGHT = 2-3 cells (100X) (0-2/hpf)
[2021-11-08] MEDS: Ferrous Sulfate 325 MG TAB PO SCH ×2 (09:02→17:38)
[2021-11-08] MEDS: Saccharomyces boulardii 250 MG CAP PO SCH (09:03)
[2021-11-08] MEDS: Heparin 5,000 UNITS/ML VIAL SC SCH ×3 (09:03→21:33)
[2021-11-08] MEDS: Carvedilol 6.25 MG TAB PO SCH ×2 (09:03→17:38)
[2021-11-08] MEDS: Amlodipine 10 MG TAB PO SCH (09:03)
[2021-11-08] MEDS: Calcitriol 0.25 MCG CAP PO SCH ×2 (09:03→21:35)
[2021-11-08] MEDS: cloNIDine 0.1 MG TAB PO SCH ×2 (09:03→21:36)
[2021-11-08] MEDS: hydrALAZINE 25 MG TAB PO SCH ×3 (09:05→21:35)
[2021-11-08] MEDS: Losartan 25 MG TAB PO SCH (09:06)
[2021-11-08] MEDS: Minoxidil 2.5 MG TAB PO SCH (09:06)
[2021-11-08] MEDS: Ondansetron PF 4 MG/2 ML Vial IVP PRN ×2 (09:09→17:38)
[2021-11-08] MEDS: Acetaminophen 325 MG TAB PO PRN ×2 (09:18→21:33)
[2021-11-08] MEDS ORDERED: Loperamide HCl 2 MG CAP PO PRN (16:30)
[2021-11-08] MEDS: Donnatal Elixir 16.2 MG/5 ML UDCUP PO SCH ×2 (18:42→21:33)
[2021-11-08] MEDS: Mirtazapine 15 MG TAB PO SCH (21:35)
[2021-11-08] MEDS: Atorvastatin Calcium 10 MG TAB PO SCH (21:37)
[2021-11-08] MEDS: Melatonin 3 MG TAB PO PRN (21:37)
[2021-11-09] MEDS: Clindamycin/D5W 300 MG in Premix Bag 1 BAG IVPB SCH ×2 (04:03→10:07)
[2021-11-09] MEDS: hydrALAZINE 25 MG TAB PO SCH ×3 (09:17→21:04)
[2021-11-09] MEDS: Donnatal Elixir 16.2 MG/5 ML UDCUP PO SCH ×4 (09:17→21:06)
[2021-11-09] MEDS: Ferrous Sulfate 325 MG TAB PO SCH ×2 (09:18→16:52)
[2021-11-09] MEDS: Minoxidil 2.5 MG TAB PO SCH (09:19)
[2021-11-09] MEDS: Carvedilol 6.25 MG TAB PO SCH ×2 (09:20→16:55)
[2021-11-09] MEDS: Losartan 25 MG TAB PO SCH (09:20)
[2021-11-09] MEDS: Amlodipine 10 MG TAB PO SCH (09:21)
[2021-11-09] MEDS: Heparin 5,000 UNITS/ML VIAL SC SCH ×3 (09:22→21:06)
[2021-11-09] MEDS: cloNIDine 0.1 MG TAB PO SCH (09:22)
[2021-11-09] MEDS: Saccharomyces boulardii 250 MG CAP PO SCH (09:22)
[2021-11-09] MEDS: Calcitriol 0.25 MCG CAP PO SCH ×2 (09:22→21:06)
[2021-11-09] MEDS ORDERED: Artificial Tear Sol 15 ML BOT EA EYE PRN (16:46)
[2021-11-09] MEDS: Acetaminophen 325 MG TAB PO PRN ×2 (16:53→21:05)
[2021-11-09] MEDS: Melatonin 3 MG TAB PO PRN (21:03)
[2021-11-09] MEDS: Atorvastatin Calcium 10 MG TAB PO SCH (21:05)
[2021-11-09] MEDS: Mirtazapine 15 MG TAB PO SCH (21:05)
[2021-11-09] MEDS: cloNIDine 0.2 MG TAB PO SCH (21:05)
[2021-11-09] MEDS: Clindamycin 150 MG CAP PO SCH (21:06)
[2021-11-10] MEDS: Clindamycin 150 MG CAP PO SCH ×3 (05:52→20:33)
[2021-11-10] MEDS: hydrALAZINE 20 MG/ML VIAL SLOW IVP PRN (06:07)
[2021-11-10] MEDS: Acetaminophen 325 MG TAB PO PRN ×2 (08:46→18:16)
[2021-11-10] MEDS: Ferrous Sulfate 325 MG TAB PO SCH ×2 (08:47→18:17)
[2021-11-10] MEDS: Heparin 5,000 UNITS/ML VIAL SC SCH ×3 (08:47→20:34)
[2021-11-10] MEDS: hydrALAZINE 25 MG TAB PO SCH ×3 (08:48→20:32)
[2021-11-10] MEDS: Saccharomyces boulardii 250 MG CAP PO SCH (08:48)
[2021-11-10] MEDS: Calcitriol 0.25 MCG CAP PO SCH ×2 (08:49→20:34)
[2021-11-10] MEDS: Carvedilol 6.25 MG TAB PO SCH ×2 (08:49→18:16)
[2021-11-10] MEDS: Losartan 25 MG TAB PO SCH (08:49)
[2021-11-10] MEDS: cloNIDine 0.2 MG TAB PO SCH ×3 (08:49→20:32)
[2021-11-10] MEDS: Minoxidil 2.5 MG TAB PO SCH (08:49)
[2021-11-10] MEDS: Amlodipine 10 MG TAB PO SCH (08:50)
[2021-11-10] MEDS: Donnatal Elixir 16.2 MG/5 ML UDCUP PO SCH ×4 (08:50→20:37)
[2021-11-10 10:48] LABS: #Basophils 0.1 thou/uL (0.0-0.2); #Eosinphils 0.6 thou/uL (0.0-0.7); #Monocytes 0.9 thou/uL (0.11-0.59); #Neutrophils 4.1 thou/uL (1.40-6.50); %Basophils 0.9 % (0.0-1.0); %Eosinophils 8.9 % (0.0-10.0); %Monocytes 13.6 % (0.0-10.0); %Neutrophils 61.6 % (42.0-75.0); Hemoglobin 9.1 g/dL (12.0-16.0); Mean Corpuscular Hemoglobin 30.9 pg (27.0-31.0); Mean Corpuscular Volume 96.6 fL (78.0-98.0); Mean Platelet Volume 6.3 fL (7.4-10.4); Platelet Count 277 thou/uL (130-400); RBC Distribution Width 18.1 % (11.5-14.5); Red Blood Cell (RBC) Count 2.94 mill/uL (4.20-5.40); White Blood Cell (WBC) Count 6.6 thou/uL (4.8-10.8)
[2021-11-10 11:17] LABS: Anion Gap 17 mmol/L (10-20); BUN (Urea Nitrogen) 37 mg/dL (9.8-20.1); Calc. Creatinine Clearance 7 mL/min (70-130); Carbon Dioxide 24 mmol/L (22-29); Chloride 90 mmol/L (98-107); Glucose 86 mg/dL (70-105); Potassium 5.3 mmol/L (3.5-5.1); Sodium 126 mmol/L (136-145)
[2021-11-10] MEDS: Mirtazapine 15 MG TAB PO SCH (20:33)
[2021-11-10] MEDS: Atorvastatin Calcium 10 MG TAB PO SCH (20:34)
[2021-11-10] MEDS: Melatonin 3 MG TAB PO PRN (20:34)
[2021-11-11] MEDS: Acetaminophen 325 MG TAB PO PRN ×3 (02:17→20:18)
[2021-11-11] MEDS: Clindamycin 150 MG CAP PO SCH ×3 (05:19→20:19)
[2021-11-11] MEDS ORDERED: Labetalol HCl 100 MG/20 ML VIAL ONE (06:34)
[2021-11-11] MEDS: cloNIDine 0.2 MG TAB PO SCH ×3 (08:56→20:20)
[2021-11-11] MEDS: Donnatal Elixir 16.2 MG/5 ML UDCUP PO SCH ×2 (08:56→13:19)
[2021-11-11] MEDS: Saccharomyces boulardii 250 MG CAP PO SCH (08:56)
[2021-11-11] MEDS: Calcitriol 0.25 MCG CAP PO SCH ×2 (08:57→20:19)
[2021-11-11] MEDS: hydrALAZINE 25 MG TAB PO SCH ×3 (08:57→20:19)
[2021-11-11] MEDS: Ferrous Sulfate 325 MG TAB PO SCH ×2 (08:57→16:26)
[2021-11-11] MEDS: Amlodipine 10 MG TAB PO SCH (08:57)
[2021-11-11] MEDS: Carvedilol 6.25 MG TAB PO SCH ×2 (08:57→16:26)
[2021-11-11] MEDS: Losartan 25 MG TAB PO SCH (08:57)
[2021-11-11] MEDS: Heparin 5,000 UNITS/ML VIAL SC SCH ×3 (08:58→20:20)
[2021-11-11] MEDS: Minoxidil 2.5 MG TAB PO SCH (08:58)
[2021-11-11] MEDS: Mirtazapine 15 MG TAB PO SCH (20:19)
[2021-11-11] MEDS: Atorvastatin Calcium 10 MG TAB PO SCH (20:19)
[2021-11-12] MEDS: Acetaminophen 325 MG TAB PO PRN ×2 (03:57→15:25)
[2021-11-12 04:40] LABS: #Basophils 0.1 thou/uL (0.0-0.2); #Eosinphils 0.6 thou/uL (0.0-0.7); #Monocytes 0.8 thou/uL (0.11-0.59); #Neutrophils 3.3 thou/uL (1.40-6.50); %Basophils 1.1 % (0.0-1.0); %Lymphocytes 16.7 % (21.0-51.0); %Monocytes 14.4 % (0.0-10.0); %Neutrophils 57.7 % (42.0-75.0); Hemoglobin 9.2 g/dL (12.0-16.0); Mean Corpuscular HGB CONC 30.2 g/dL (32.0-36.0); Mean Corpuscular Hemoglobin 30.2 pg (27.0-31.0); Mean Platelet Volume 6.5 fL (7.4-10.4); Platelet Count 287 thou/uL (130-400); RBC Distribution Width 18.2 % (11.5-14.5); Red Blood Cell (RBC) Count 3.05 mill/uL (4.20-5.40); White Blood Cell (WBC) Count 5.7 thou/uL (4.8-10.8)
[2021-11-12 05:06] LABS: Anion Gap 19 mmol/L (10-20); BUN (Urea Nitrogen) 23 mg/dL (9.8-20.1); Calc. Creatinine Clearance 10 mL/min (70-130); Calcium 9.3 mg/dL (7.8-10.44); Carbon Dioxide 20 mmol/L (22-29); Chloride 89 mmol/L (98-107); Glucose 64 mg/dL (70-105); Potassium 4.8 mmol/L (3.5-5.1); Sodium 123 mmol/L (136-145)
[2021-11-12] MEDS: Clindamycin 150 MG CAP PO SCH ×3 (05:30→21:01)
[2021-11-12] MEDS: Minoxidil 2.5 MG TAB PO SCH (11:22)
[2021-11-12] MEDS: Losartan 25 MG TAB PO SCH (11:23)
[2021-11-12] MEDS: Saccharomyces boulardii 250 MG CAP PO SCH (11:23)
[2021-11-12] MEDS: Carvedilol 6.25 MG TAB PO SCH ×2 (11:23→15:25)
[2021-11-12] MEDS: hydrALAZINE 25 MG TAB PO SCH ×3 (11:23→21:00)
[2021-11-12] MEDS: Ferrous Sulfate 325 MG TAB PO SCH ×2 (11:24→15:24)
[2021-11-12] MEDS: Amlodipine 10 MG TAB PO SCH (11:24)
[2021-11-12] MEDS: cloNIDine 0.2 MG TAB PO SCH ×3 (11:25→21:00)
[2021-11-12] MEDS: Calcitriol 0.25 MCG CAP PO SCH ×2 (11:25→21:00)
[2021-11-12] MEDS: Heparin 5,000 UNITS/ML VIAL SC SCH ×3 (11:25→21:00)
[2021-11-12] MEDS: Atorvastatin Calcium 10 MG TAB PO SCH (21:00)
[2021-11-12] MEDS: Mirtazapine 15 MG TAB PO SCH (21:01)
[2021-11-13 03:10] LABS: SARS-CoV-2 PCR by NAA Not Detected (NotDetected)
[2021-11-13] MEDS: Clindamycin 150 MG CAP PO SCH ×2 (05:15→13:49)
[2021-11-13 05:49] LABS: #Eosinphils 0.6 thou/uL (0.0-0.7); #Lymphocytes 1.1 thou/uL (1.20-3.40); #Neutrophils 4.7 thou/uL (1.40-6.50); %Basophils 0.3 % (0.0-1.0); %Eosinophils 7.9 % (0.0-10.0); %Lymphocytes 14.2 % (21.0-51.0); %Neutrophils 63.6 % (42.0-75.0); Hemoglobin 9.2 g/dL (12.0-16.0); Mean Corpuscular HGB CONC 31.5 g/dL (32.0-36.0); Mean Corpuscular Hemoglobin 30.4 pg (27.0-31.0); Mean Corpuscular Volume 96.5 fL (78.0-98.0); Mean Platelet Volume 6.6 fL (7.4-10.4); Platelet Count 312 thou/uL (130-400); Red Blood Cell (RBC) Count 3.04 mill/uL (4.20-5.40); White Blood Cell (WBC) Count 7.4 thou/uL (4.8-10.8)
[2021-11-13 06:12] LABS: Anion Gap 17 mmol/L (10-20); BUN (Urea Nitrogen) 34 mg/dL (9.8-20.1); Calc. Creatinine Clearance 7 mL/min (70-130); Carbon Dioxide 23 mmol/L (22-29); Chloride 85 mmol/L (98-107); Glucose 65 mg/dL (70-105); Potassium 4.9 mmol/L (3.5-5.1); Sodium 120 mmol/L (136-145)
[2021-11-13 10:04] VITALS: BP 121/61; TEMP 98
[2021-11-13] MEDS: cloNIDine 0.2 MG TAB PO SCH ×2 (10:09→13:51)
[2021-11-13] MEDS: hydrALAZINE 25 MG TAB PO SCH ×2 (10:10→13:50)
[2021-11-13] MEDS: Heparin 5,000 UNITS/ML VIAL SC SCH ×2 (10:10→13:49)
[2021-11-13] MEDS: Losartan 25 MG TAB PO SCH (13:49)
[2021-11-13] MEDS: Saccharomyces boulardii 250 MG CAP PO SCH (13:50)
[2021-11-13] MEDS: Ferrous Sulfate 325 MG TAB PO SCH (13:50)
[2021-11-13] MEDS: Minoxidil 2.5 MG TAB PO SCH (13:50)
[2021-11-13] MEDS: Carvedilol 6.25 MG TAB PO SCH (13:51)
[2021-11-13] MEDS: Calcitriol 0.25 MCG CAP PO SCH (13:51)
[2021-11-13] MEDS: Amlodipine 10 MG TAB PO SCH (13:52)
== END 2021-11-13 16:37 | disposition home or self-care (01) | DRG 252 ==
LOC: ERS 12:37 → ERHOLD 16:15 → 2NO 18:49
PROVIDERS: ADMIT Hospitalist; ATTEND Internal Medicine
PROC: 5A1D70Z Performance of Urinary Filtration, Intermittent, Less than 6 Hours Per Day (ICD-10-PCS; 2021-11-06)
PROC: 057Y3ZZ Dilation of Upper Vein, Percutaneous Approach (ICD-10-PCS; principal; 2021-11-12)
PROC: B51W1ZZ Fluoroscopy of Dialysis Shunt/Fistula using Low Osmolar Contrast (ICD-10-PCS; 2021-11-12)
DX: T82.858A Stenosis of other vascular prosthetic devices, implants and grafts, initial encounter (principal); N18.6 End stage renal disease; I12.0 Hypertensive chronic kidney disease with stage 5 chronic kidney disease or end stage renal disease; L03.114 Cellulitis of left upper limb; N25.81 Secondary hyperparathyroidism of renal origin; E87.1 Hypo-osmolality and hyponatremia; E87.5 Hyperkalemia; Z20.822 Contact with and (suspected) exposure to COVID-19; E78.5 Hyperlipidemia, unspecified; J45.909 Unspecified asthma, uncomplicated; I16.0 Hypertensive urgency; E83.39 Other disorders of phosphorus metabolism; D63.1 Anemia in chronic kidney disease; G43.019 Migraine without aura, intractable, without status migrainosus; E87.70 Fluid overload, unspecified; G47.00 Insomnia, unspecified; R11.2 Nausea with vomiting, unspecified; R19.7 Diarrhea, unspecified; Y83.2 Surgical operation with anastomosis, bypass or graft as the cause of abnormal reaction of the patient, or of later complication, without mention of misadventure at the time of the procedure; E11.649 Type 2 diabetes mellitus with hypoglycemia without coma; Z28.21 Immunization not carried out because of patient refusal; Z99.2 Dependence on renal dialysis; Z79.899 Other long term (current) drug therapy; Z91.14 Patient's other noncompliance with medication regimen; Z91.15 Patient's noncompliance with renal dialysis
CPT/HCPCS: 36415; 36416; 36901; 36902; 71045; 80048; 80053; 82553; 82805; 83735; 83880; 83970; 84100; 84484; 85025; 90935; 93005; 93010; 96365; 96375; C1725; G0257; J0360; J1170; J1644; J2270; J2405; J3370; J3490; Q5105; U0002; U0003; U0005